=== PATIENT | female | born 1995 | race Caucasian/White ===

== ENCOUNTER 2018-10-07 15:20 | Emergency (ER) | payer MEDICAID ==
--- NOTE | 2018-10-07 15:43 | ERPHSYRPT ---
- History of Present Illness Time Seen by Provider: 10/07/18 15:40 Source: patient Exam Limitations: no limitations Patient Subjective Stated Complaint: states started having swelling and pain to left lower jaw two days ago. thinks she may have abscessed tooth. Triage Nursing Assessment: left jaw slightly swollen, tender to touch Physician History: states started having swelling and pain to left lower jaw two days ago. thinks she may have abscessed tooth. Timing/Duration: today Associated Symptoms: denies symptoms Allergies/Adverse Reactions: No Known Drug Allergies Allergy (Unverified 10/07/18 15:29) Home Medications: Metformin HCl [Glucophage] 1,000 mg PO DAILY 10/07/18 [History] Hx Tetanus, Diphtheria Vaccination/Date Given: Yes Hx Influenza Vaccination/Date Given: No Hx Pneumococcal Vaccination/Date Given: No - Review of Systems Constitutional: No Symptoms Eyes: No Symptoms Ears, Nose, & Throat: Loose Teeth Respiratory: No Symptoms Cardiac: No Symptoms Abdominal/Gastrointestinal: No Symptoms Genitourinary Symptoms: No Symptoms Musculoskeletal: No Symptoms - Past Medical History Pertinent Past Medical History: Yes Endocrine Medical History: Diabetes Type II Female Reproductive Disorders: Other Other Medical History: ovarian cyst - Past Surgical History Past Surgical History: Yes Other Surgical History: one ovary and one fallopian tube removed - Social History Smoking Status: Never smoker Exposure to second hand smoke: Yes Drug Use: none Patient Lives Alone: No - Female History Hx Last Menstrual Period: now Hx Now: No - Nursing Vital Signs Nursing Vital Signs: Initial Vital Signs Temperature 98.3 F 10/07/18 15:25 Pulse Rate 80 10/07/18 15:25 Respiratory Rate 16 10/07/18 15:25 Blood Pressure 112/81 10/07/18 15:25 O2 Sat by Pulse Oximetry 97 10/07/18 15:25 Pain Scale Pain Intensity 7 - Physical Exam General Appearance: no apparent distress Eye Exam: PERRL/EOMI Ears, Nose, Throat Exam: normal ENT inspection, other Neck Exam: normal inspection Respiratory Exam: normal breath sounds Cardiovascular Exam: regular rate/rhythm SpO2: 97 - Course Nursing assessment & vital signs reviewed: Yes - Progress Progress: unchanged Counseled pt/family regarding: diagnosis, need for follow-up (with Dentist) - Departure Departure Disposition: Home Clinical Impression: Tooth abscess Condition: Stable Critical Care Time: No Instructions: Tooth Abscess (DC) Additional Instructions: Discharge/Care Plan ASAEL,LYNDSEY was seen on 10/07/18 in the Emergency Room. The patient was counseled regarding Diagnosis,Lab results, Imaging studies, need for follow up and when to return to the Emergency Room. Prescriptions given: Discharge Note I have spoken with the patient and/or caregivers. I have explained the patient' s condition, diagnosis and treatment plan based on the information available to me at this time. I have answered the patient's and/or caregiver's questions and addressed any concerns. The patient and/or caregivers have as good understanding of the patient's diagnosis, condition and treatment plan as can be expected at this point. The vital signs have been stable. The patient's condition is stable and appropriate for discharge from the emergency department. The patient will pursue further outpatient evaluation with the primary care physician or other designated or consulting physician as outlined in the discharge instructions. The patient and/or caregivers are agreeable to this plan of care and follow-up instructions have been explained in detail. The patient and/or caregivers have received these instruction. The patient/and or caregivers are aware that any significant change in condition or worsening of symptoms should prompt an immediate return to this or the closest emergency department or call 911. Prescriptions: Amoxicillin 500 mg Cap [Amoxil 500 mg] 500 mg PO TID #30 capsule Naproxen 500 mg [Naprosyn 500 MG] 500 mg PO BIDAC #30 tablet
[2018-10-07] MEDS ORDERED: TORAdol 30 mg Injection ONE (15:45)
[2018-10-07] MEDS ORDERED: Rocephin 1000 MG INJ ONE (15:45)
[2018-10-07] MEDS ORDERED: XYLOCAINE 1% HCL 20 ML MDV ONE (15:45)
[2018-10-07] MEDS: TORAdol 30 mg Injection IM ONE (16:01)
[2018-10-07] MEDS: Rocephin 1000 MG INJ IM ONE (16:02)
[2018-10-07 16:25] VITALS: BP 117/69; PULSE 72; O2SAT 95
== END 2018-10-07 16:24 | disposition home or self-care (01) ==
LOC: ED 15:20
DX: K04.7 Periapical abscess without sinus (principal)
CPT/HCPCS: 96372; 99284; J0696; J1885

== ENCOUNTER 2018-11-24 17:08 | Emergency (ER) | payer MEDICAID, OTHER ==
[2018-11-24] MEDS ORDERED: ROCEPHIN 1 Gm-D5w 50 ml Bag** 1 G/50 ML IVPB IV STA (17:44)
[2018-11-24] MEDS ORDERED: Sodium Chloride 0.9% 1000 ML 1,000 ML IV SCH (17:45)
--- NOTE | 2018-11-24 17:47 | ERPHSYRPT ---
- History of Present Illness Time Seen by Provider: 11/24/18 17:34 Source: patient Exam Limitations: clinical condition Patient Subjective Stated Complaint: Pt states "I have this spot on my side, it started as a hole with red around it and it is getting bigger, I poked it and a bunch of green stuff came out." Triage Nursing Assessment: PT presented to the ED and placed in room 9. Pt has abscess noted to right lateral side mid axillary. red swollen 3 cm X 2 cm Physician History: PATIENT WITH A HISTORY OF TYPE 2 DIABETIC NONCOMPLIANT WITH INSULIN, COMPLAINS OF SQUEEZING DISCHARGE FROM SMALL LESION BELOW HER ARMPIT. DENIES FEVER OR CHILLS. TAKES METFORMIN FOR DIABETES. Timing/Duration: yesterday Quality: painful Severity: mild Location: other (CHEST WALL) Possible Causes: no cause identified Modifying Factors: Improves With: other (NONE) Allergies/Adverse Reactions: No Known Drug Allergies Allergy (Verified 11/24/18 17:27) Home Medications: Metformin HCl [Glucophage] 1,000 mg PO DAILY 10/07/18 [History] Hx Tetanus, Diphtheria Vaccination/Date Given: No Hx Influenza Vaccination/Date Given: No Hx Pneumococcal Vaccination/Date Given: No Immunizations Up to Date: Yes - Review of Systems Constitutional: No Symptoms Eyes: No Symptoms Respiratory: No Symptoms Cardiac: No Symptoms Skin: Skin Lesions (RIGHT CHEST WALL) Neurological: No Symptoms Hematologic/Lymphatic: No Symptoms - Past Medical History Pertinent Past Medical History: Yes Neurological History: No Pertinent History ENT History: No Pertinent History Cardiac History: No Pertinent History Respiratory History: No Pertinent History Endocrine Medical History: Diabetes Type II, Other Musculoskeletal History: No Pertinent History GI Medical History: No Pertinent History History: No Pertinent History Psycho-Social History: Depression Female Reproductive Disorders: Other Other Medical History: NON COMPLIANT ON INSULIN - Past Surgical History Past Surgical History: Yes Neuro Surgical History: No Pertinent History Cardiac: No Pertinent History Respiratory: No Pertinent History Gastrointestinal: No Pertinent History Genitourinary: No Pertinent History Musculoskeletal: No Pertinent History Female Surgical History: Other Other Surgical History: cyst on left ovary removed - Social History Smoking Status: Never smoker Exposure to second hand smoke: Yes Drug Use: none Patient Lives Alone: No - Female History Hx Last Menstrual Period: 10/27/2018 Hx Now: (unknown) - Nursing Vital Signs Nursing Vital Signs: Initial Vital Signs Temperature 98.5 F 11/24/18 17:22 Pulse Rate 100 H 11/24/18 17:22 Respiratory Rate 22 11/24/18 17:22 Blood Pressure 140/94 11/24/18 17:22 O2 Sat by Pulse Oximetry 97 11/24/18 17:22 Pain Scale Pain Intensity 0 - Physical Exam General Appearance: no apparent distress, alert Eye Exam: PERRL/EOMI, eyes nml inspection Ears, Nose, Throat Exam: normal ENT inspection, pharynx normal, moist mucous membranes Neck Exam: normal inspection, non-tender, supple, full range of motion Respiratory Exam: normal breath sounds, lungs clear, No respiratory distress Cardiovascular Exam: regular rate/rhythm, normal heart sounds Gastrointestinal/Abdomen Exam: soft, normal bowel sounds, mass, No tenderness Back Exam: normal inspection, normal range of motion, No CVA tenderness, No vertebral tenderness Extremity Exam: normal inspection, normal range of motion Neurologic Exam: alert, oriented x 3, cooperative, normal mood/affect, sensation nml, No motor deficits Skin Exam: normal color, warm, dry, other (THERE IS A NONFLUCTUANT SWELLING 1CM OVER RIGHT CHEST WALL INFERIOR TO AXILLA 5 INTERCOSTAL SPACE NO DRAINAGE NOTED, NO ERYTHEMA) SpO2: 97 Ordered Tests: Active Orders 24 hr Category Date Time Status BMP Stat Lab 11/24/18 18:09 Completed CBC W DIFF Stat Lab 11/24/18 18:09 Completed CULTURE,WOUND Stat Lab 11/24/18 17:35 Received Medication Summary Generic Name Dose Route Start Last Admin Trade Name Freq PRN Reason Stop Dose Admin Sodium Chloride 1,000 mls @ 500 mls/hr 11/24/18 17:45 11/24/18 18:59 Sodium Chloride 0.9% 1000 Ml IV 12/24/18 17:44 Infused .Q2H MICHELLE Infusion Discontinued Medications Generic Name Dose Route Start Last Admin Trade Name Freq PRN Reason Stop Dose Admin Ceftriaxone Sodium/Dextrose 1 g in 50 mls @ 100 mls/hr 11/24/18 17:44 18:52 Rocephin 1 Gm-D5w 50 Ml Bag IV 11/24/18 18:13 Infused STAT STA Infusion Ceftriaxone Sodium/Dextrose Confirm 11/24/18 17:48 Rocephin 1 Gm-D5w 50 Ml Bag Administered 11/24/18 17:49 Dose 1 g in 50 mls @ ud IV .STK-MED ONE Lab/Rad Data: Laboratory Result Diagrams 11/24/18 18:09 11/24/18 18:09 Laboratory Results 11/24/18 11/24/18 Range/Units 18:09 18:09 WBC 6.7 (4.0-10.5) K/mm3 RBC 4.69 (4.1-5.4) M/mm3 Hgb 13.7 (12.0-16.0) gm/dl Hct 39.2 (35-47) % MCV 83.6 (78-100) fl MCH 29.2 (26-32) pg MCHC 34.9 (32-36) g/dl RDW 13.4 (11.5-14.0) % Plt Count 187 (150-450) K/mm3 MPV 10.0 H (6-9.5) fl Gran % 47.2 (36.0-66.0) % Eos # (Auto) 0.05 (0-0.5) Absolute Lymphs (auto) 3.09 (1.0-4.6) Absolute Monos (auto) 0.38 (0.0-1.3) Lymphocytes % 46.3 H (24.0-44.0) % Monocytes % 5.7 (0.0-12.0) % Eosinophils % 0.7 (0.00-5.0) % Basophils % 0.1 (0.0-0.4) % Absolute Granulocytes 3.14 (1.4-6.9) Basophils # 0.01 (0-0.4) Sodium 136 L (137-145) mmol/L Potassium 4.3 (3.5-5.1) mmol/L Chloride 100 (98-107) mmol/L Carbon Dioxide 26 (22-30) mmol/L Anion Gap 14.2 (5-15) MEQ/L BUN 9 (7-17) mg/dL Creatinine 0.41 L (0.52-1.04) mg/dL Estimated GFR > 60.0 ML/MIN Glucose 317 H (74-106) mg/dL Calcium 9.7 (8.4-10.2) mg/dL - Progress Progress Note: 11/24/18 19:01 IV ROCEPHIN 1GM, ALL LAB TEST REVIEW AND ARE NORMAL EXCEPT GLUCOSE 317 Counseled pt/family regarding: lab results, diagnosis, need for follow-up - Departure Departure Disposition: Home Clinical Impression: FURUNCLE RIGHT CHEST WALL Condition: Stable Critical Care Time: No Referrals: CONRAD ISBELL MD [Primary Care Provider] - Additional Instructions: FOLLOWUP WITH A PRIMARY CARE PROVIDER FOR EVALUATION AND TREATMENT. ANTIBIOTIC BACTRIM DS TWICE DAILY FOR 10 DAYS. AVOID SQUEEZING OR COMPRESSING LESION. TYLENOL OR MOTRIN FOR PAIN. Prescriptions: Smz/Tmp Ds Tablet [Bactrim Ds Tablet] 1 tab PO BID #20 tablet
[2018-11-24] MEDS ORDERED: ROCEPHIN 1 Gm-D5w 50 ml Bag** 1 G/50 ML IVPB IV ONE (17:48)
[2018-11-24] MEDS ORDERED: Sodium Chloride 0.9% 1000 ML 1,000 ML ONE (17:48)
[2018-11-24 18:13] LABS: BASOPHIL % 0.1 % (0.0-0.4); Basophil (Absolute #) 0.01 (0-0.4); Eosinophil % 0.7 % (0.00-5.0); Eosinophil (Absolute #) 0.05 (0-0.5); Granulocyte Absolute (ANC) 3.14 (1.4-6.9); Granulocytes % 47.2 % (36.0-66.0); Hematocrit 39.2 % (35-47); Hemoglobin 13.7 gm/dl (12.0-16.0); Lymphocyte (Absolute #) 3.09 (1.0-4.6); Lymphocytes % 46.3 % (24.0-44.0); Mean Cell Volume 83.6 fl (78-100); Mean Corpuscular Hemoglobin 29.2 pg (26-32); Mean Corpuscular Hgb Concent. 34.9 g/dl (32-36); Monocyte (Absolute #) 0.38 (0.0-1.3); Monocytes % 5.7 % (0.0-12.0); Platelet Count 187 K/mm3 (150-450); Red Blood Count 4.69 M/mm3 (4.1-5.4); Red Cell Distribution Width 13.4 % (11.5-14.0); White Blood Count 6.7 K/mm3 (4.0-10.5)
[2018-11-24 18:23] LABS: ANION GAP 14.2 MEQ/L (5-15); BLOOD UREA NITROGEN 9 mg/dL (7-17); CHLORIDE 100 mmol/L (98-107); Calcium 9.7 mg/dL (8.4-10.2); Carbon Dioxide 26 mmol/L (22-30); Creatinine 1 0.41 mg/dL (0.52-1.04); Glucose 317 mg/dL (74-106); Potassium 4.3 mmol/L (3.5-5.1); SODIUM 136 mmol/L (137-145)
[2018-11-24 18:59] VITALS: BP 137/94; PULSE 101; O2SAT 97
== END 2018-11-24 19:09 | disposition home or self-care (01) ==
LOC: ED 17:08
DX: L02.223 Furuncle of chest wall (principal); E11.9 Type 2 diabetes mellitus without complications; Z79.4 Long term (current) use of insulin; Z91.14 Patient's other noncompliance with medication regimen
CPT/HCPCS: 36000; 36415; 80048; 85025; 87070; 87077; 87186; 96360; 96365; 99284; J0696

== ENCOUNTER 2018-12-06 13:52 | Emergency (ER) | payer OTHER ==
[2018-12-06] MEDS ORDERED: Zofran 4 MG/2 ML VIAL IV ONE (14:22)
--- NOTE | 2018-12-06 14:26 | ERPHSYRPT ---
- History of Present Illness Time Seen by Provider: 12/06/18 14:20 Patient Subjective Stated Complaint: Pt states "I had my wisdom teeth out on monday and I have had lower right abdominal pain and diarrhea since then. I also missed my period and I took a home test and it was negative but my last I had to have a blood test to tell. The pain reminds me of ovarian cysts." Triage Nursing Assessment: PT presented through the front alert and oriented X 3 , skin pwd. Pt ambulates with an upright steady gait, able to speak in clear full sentences. Pt in no apparent respiratory distress. Physician History: PATIENT WITH A HISTORY OF TYPE 2 DIABETES UNDER WENT EXTRACTION OF WISDOM TEETH 2 DAYS AGO, PLACED ON ANTIBIOTIC AUGMENTIN AND NORCO. NOW COMPLAINS OF NAUSEA EMESIS AND DIARRHEA X 2 DAYS ASSOCIATED WITH RIGHT LOWER ABDOMINAL PAIN. Timing/Duration: day(s) Activities at Onset: none Quality: sharpness Abdominal Pain Onset Location: RLQ Pain Radiation: no radiation Severity of Pain-Max: mild Severity of Pain-Current: mild Modifying Factors: Improves With: nothing Associated Symptoms: nausea, vomiting Previous symptoms: no prior history Allergies/Adverse Reactions: No Known Drug Allergies Allergy (Verified 11/24/18 17:27) Home Medications: Metformin HCl [Glucophage] 1,000 mg PO DAILY 10/07/18 [History] Amoxicillin 500 mg Cap [Amoxil 500 mg] 500 mg PO TID 12/06/18 [History] Hydrocodone Bit/Acetaminophen [Hydrocodon-Acetaminophen 5-325] 1 each PO QID PRN 12/06/18 [History] Hx Tetanus, Diphtheria Vaccination/Date Given: Yes Hx Influenza Vaccination/Date Given: No Hx Pneumococcal Vaccination/Date Given: No Immunizations Up to Date: Yes - Review of Systems Constitutional: No Fever, No Chills Eyes: No Symptoms Ears, Nose, & Throat: No Symptoms Respiratory: No Symptoms, No Cough, No Dyspnea Cardiac: No Symptoms, No Chest Pain, No Edema, No Syncope Abdominal/Gastrointestinal: Abdominal Pain, Nausea, Vomiting, Diarrhea Genitourinary Symptoms: No Dysuria Musculoskeletal: No Back Pain, No Neck Pain Skin: No Rash Neurological: No Symptoms, No Dizziness, No Focal Weakness, No Sensory Changes Psychological: No Symptoms Endocrine: No Symptoms All Other Systems: Reviewed and Negative - Past Medical History Pertinent Past Medical History: Yes Neurological History: No Pertinent History ENT History: No Pertinent History Cardiac History: No Pertinent History Respiratory History: No Pertinent History Endocrine Medical History: Diabetes Type II, Other Musculoskeletal History: No Pertinent History GI Medical History: No Pertinent History History: No Pertinent History Psycho-Social History: Depression Female Reproductive Disorders: Other Other Medical History: NON COMPLIANT ON INSULIN - Past Surgical History Past Surgical History: Yes Neuro Surgical History: No Pertinent History Cardiac: No Pertinent History Respiratory: No Pertinent History Gastrointestinal: No Pertinent History Genitourinary: No Pertinent History Musculoskeletal: No Pertinent History Female Surgical History: Other Other Surgical History: cyst on left ovary removed. wisdom teeth X 4 - Social History Smoking Status: Never smoker Exposure to second hand smoke: Yes Drug Use: none Patient Lives Alone: No - Female History Hx Last Menstrual Period: 11/01/2018 Hx Now: (unknown) - Nursing Vital Signs Nursing Vital Signs: Initial Vital Signs Temperature 98.6 F 12/06/18 13:59 Pulse Rate 100 H 12/06/18 13:59 Respiratory Rate 18 12/06/18 13:59 Blood Pressure 138/85 12/06/18 13:59 O2 Sat by Pulse Oximetry 96 12/06/18 13:59 Pain Scale Pain Intensity 4 - Physical Exam General Appearance: no apparent distress Eye Exam: PERRL/EOMI, eyes nml inspection Ears, Nose, Throat Exam: normal ENT inspection, pharynx normal, moist mucous membranes Neck Exam: normal inspection, non-tender, supple, full range of motion Respiratory Exam: normal breath sounds, lungs clear, No respiratory distress Cardiovascular Exam: regular rate/rhythm, normal heart sounds Gastrointestinal/Abdomen Exam: soft, normal bowel sounds, tenderness (MINIMAL RIGHT LOWER QUAD TENDERNESS, NO GUARDING), No mass Back Exam: normal inspection, normal range of motion, No CVA tenderness, No vertebral tenderness Extremity Exam: normal inspection, normal range of motion, pelvis stable Neurologic Exam: alert, oriented x 3, cooperative, normal mood/affect, nml cerebellar function, sensation nml, No motor deficits Skin Exam: normal color, warm, dry SpO2 Interpretation: normal SpO2: 96 - CT Exams Abdomen/Pelvis CT Interpretation: Discussed w/radiologist (NORMAL APPENDIX,,NEW MILD DIFFUSE STASIS) Ordered Tests: Active Orders 24 hr Category Date Time Status IV Insertion STAT Care 12/06/18 14:22 Active ABDOMEN AND PELVIS W CONTRAST [CT] Stat Exams 12/06/18 15:15 Completed BMP Stat Lab 12/06/18 14:35 Completed CBC W DIFF Stat Lab 12/06/18 14:35 Completed HCG,QUALITATIVE URINE Stat Lab 12/06/18 14:31 Completed UA W/RFX UR CULTURE Stat Lab 12/06/18 14:35 Completed Urine Triage Profile Stat Lab 12/06/18 14:35 Completed Medication Summary Discontinued Medications Generic Name Dose Route Start Last Admin Trade Name Raz PRN Reason Stop Dose Admin Ondansetron HCl 4 mg 12/06/18 14:22 12/06/18 14:44 Zofran 4 Mg/2 Ml Vial IV 12/06/18 14:23 4 mg STAT ONE Administration Ondansetron HCl Confirm 12/06/18 14:43 Zofran 4 Mg/2 Ml Vial Administered 12/06/18 14:44 Dose 4 mg .ROUTE .STK-MED ONE Lab/Rad Data: Laboratory Result Diagrams 12/06/18 14:35 12/06/18 14:35 Laboratory Results 12/06/18 12/06/18 12/06/18 Range/Units 14:35 14:35 14:35 WBC (4.0-10.5) K/mm3 RBC (4.1-5.4) M/mm3 Hgb (12.0-16.0) gm/dl Hct (35-47) % MCV (78-100) fl MCH (26-32) pg MCHC (32-36) g/dl RDW (11.5-14.0) % Plt Count (150-450) K/mm3 MPV (6-9.5) fl Gran % (36.0-66.0) % Eos # (Auto) (0-0.5) Absolute Lymphs (auto) (1.0-4.6) Absolute Monos (auto) (0.0-1.3) Lymphocytes % (24.0-44.0) % Monocytes % (0.0-12.0) % Eosinophils % (0.00-5.0) % Basophils % (0.0-0.4) % Absolute Granulocytes (1.4-6.9) Basophils # (0-0.4) Sodium 136 L (137-145) mmol/L Potassium 4.5 (3.5-5.1) mmol/L Chloride 101 (98-107) mmol/L Carbon Dioxide 24 (22-30) mmol/L Anion Gap 15.3 H (5-15) MEQ/L BUN 7 (7-17) mg/dL Creatinine 0.39 L (0.52-1.04) mg/dL Estimated GFR > 60.0 ML/MIN Glucose 383 H (74-106) mg/dL Calcium 9.5 (8.4-10.2) mg/dL Urine Color YELLOW (YELLOW) Urine Appearance CLEAR (CLEAR) Urine pH 5.0 (5-6) Ur Specific Prosper 1.035 (1.005-1.025) Urine Protein NEGATIVE (Negative) Urine Ketones TRACE (NEGATIVE) Urine Blood NEGATIVE (0-5) Roberto/ul Urine Nitrite NEGATIVE (NEGATIVE) Urine Bilirubin NEGATIVE (NEGATIVE) Urine Urobilinogen NEGATIVE (0-1) mg/dL Ur Leukocyte Esterase NEGATIVE (NEGATIVE) Urine WBC (Auto) NONE (0-5) /HPF Urine RBC (Auto) NONE (0-2) /HPF U Epithel Cells (Auto) NONE (FEW) /HPF Urine Bacteria (Auto) NONE (NEGATIVE) /HPF Urine Mucus (Auto) SLIGHT (NEGATIVE) /HPF Urine Culture Reflexed NO (NO) Urine Glucose >=500 (NEGATIVE) mg/dL Urine HCG, Qual (Negative) Urine Opiates Level POSITIVE (NEGATIVE) Ur Methadone NEGATIVE (NEGATIVE) Urine Barbiturates NEGATIVE (NEGATIVE) Ur Phencyclidine (PCP) NEGATIVE (NEGATIVE) Urine Amphetamine NEGATIVE (NEGATIVE) U Benzodiazepine Level NEGATIVE (NEGATIVE) Urine Cocaine NEGATIVE (NEGATIVE) Urine Marijuana (THC) NEGATIVE (NEGATIVE) 12/06/18 12/06/18 Range/Units 14:35 14:31 WBC 6.7 (4.0-10.5) K/mm3 RBC 4.37 (4.1-5.4) M/mm3 Hgb 13.0 (12.0-16.0) gm/dl Hct 37.5 (35-47) % MCV 85.8 (78-100) fl MCH 29.7 (26-32) pg MCHC 34.7 (32-36) g/dl RDW 13.3 (11.5-14.0) % Plt Count 222 (150-450) K/mm3 MPV 10.5 H (6-9.5) fl Gran % 49.2 (36.0-66.0) % Eos # (Auto) 0.06 (0-0.5) Absolute Lymphs (auto) 2.91 (1.0-4.6) Absolute Monos (auto) 0.40 (0.0-1.3) Lymphocytes % 43.6 (24.0-44.0) % Monocytes % 6.0 (0.0-12.0) % Eosinophils % 0.9 (0.00-5.0) % Basophils % 0.3 (0.0-0.4) % Absolute Granulocytes 3.29 (1.4-6.9) Basophils # 0.02 (0-0.4) Sodium (137-145) mmol/L Potassium (3.5-5.1) mmol/L Chloride (98-107) mmol/L Carbon Dioxide (22-30) mmol/L Anion Gap (5-15) MEQ/L BUN (7-17) mg/dL Creatinine (0.52-1.04) mg/dL Estimated GFR ML/MIN Glucose (74-106) mg/dL Calcium (8.4-10.2) mg/dL Urine Color (YELLOW) Urine Appearance (CLEAR) Urine pH (5-6) Ur Specific Prosper (1.005-1.025) Urine Protein (Negative) Urine Ketones (NEGATIVE) Urine Blood (0-5) Roberto/ul Urine Nitrite (NEGATIVE) Urine Bilirubin (NEGATIVE) Urine Urobilinogen (0-1) mg/dL Ur Leukocyte Esterase (NEGATIVE) Urine WBC (Auto) (0-5) /HPF Urine RBC (Auto) (0-2) /HPF U Epithel Cells (Auto) (FEW) /HPF Urine Bacteria (Auto) (NEGATIVE) /HPF Urine Mucus (Auto) (NEGATIVE) /HPF Urine Culture Reflexed (NO) Urine Glucose (NEGATIVE) mg/dL Urine HCG, Qual NEGATIVE (Negative) Urine Opiates Level (NEGATIVE) Ur Methadone (NEGATIVE) Urine Barbiturates (NEGATIVE) Ur Phencyclidine (PCP) (NEGATIVE) Urine Amphetamine (NEGATIVE) U Benzodiazepine Level (NEGATIVE) Urine Cocaine (NEGATIVE) Urine Marijuana (THC) (NEGATIVE) - Departure Departure Disposition: Home Clinical Impression: ACUTE GASTROENTERITIS Condition: Stable Critical Care Time: No Referrals: CONRAD ISBELL MD [Primary Care Provider] - Additional Instructions: ZOFRAN 4MG EVERY 6 HOURS FOR NAUSEA NEEDED. TORADOL 10MG EVERY 6 HOURS FOR PAIN. TAKE OVER THE COUNTER IMODIUM FOR DIARRHEA. HOLD METFORMIN FOR [address] SCAN. CONSULT YOUR PRIMARY CARE PROVIDER FOR FOLLOWUP AND DIABETIC TEACHING CLASSES. Prescriptions: Ketorolac Tromethamine [Toradol] 10 mg PO Q6H PRN PRN #20 tablet PRN Reason: Pain Ondansetron ODT 4 MG [Zofran Odt 4 mg] 4 mg PO Q6H PRN PRN #10 tab.rapdis PRN Reason: Nausea
[2018-12-06 14:43] LABS: BASOPHIL % 0.3 % (0.0-0.4); Basophil (Absolute #) 0.02 (0-0.4); Eosinophil % 0.9 % (0.00-5.0); Eosinophil (Absolute #) 0.06 (0-0.5); Granulocyte Absolute (ANC) 3.29 (1.4-6.9); Granulocytes % 49.2 % (36.0-66.0); Hematocrit 37.5 % (35-47); Lymphocyte (Absolute #) 2.91 (1.0-4.6); Lymphocytes % 43.6 % (24.0-44.0); Mean Cell Volume 85.8 fl (78-100); Mean Corpuscular Hemoglobin 29.7 pg (26-32); Mean Corpuscular Hgb Concent. 34.7 g/dl (32-36); Mean Platelet Volume 10.5 fl (6-9.5); Platelet Count 222 K/mm3 (150-450); Red Blood Count 4.37 M/mm3 (4.1-5.4); Red Cell Distribution Width 13.3 % (11.5-14.0); White Blood Count 6.7 K/mm3 (4.0-10.5)
[2018-12-06] MEDS ORDERED: Zofran 4 MG/2 ML VIAL ONE (14:43)
[2018-12-06 14:52] LABS: Appearance CLEAR (CLEAR); Bilirubin NEGATIVE (NEGATIVE); Blood NEGATIVE Ery/ul (0-5); Glucose >=500 mg/dL (NEGATIVE); Ketones TRACE (NEGATIVE); Leukocyte Esterase NEGATIVE (NEGATIVE); Mucus SLIGHT /HPF (NEGATIVE); Nitrite NEGATIVE (NEGATIVE); Protein,Urine Dip NEGATIVE (Negative); Specific Gravity 1.035 (1.005-1.025); Urobilinogen NEGATIVE mg/dL (0-1)
[2018-12-06 14:58] LABS: ANION GAP 15.3 MEQ/L (5-15); BLOOD UREA NITROGEN 7 mg/dL (7-17); CHLORIDE 101 mmol/L (98-107); Calcium 9.5 mg/dL (8.4-10.2); Carbon Dioxide 24 mmol/L (22-30); Creatinine 1 0.39 mg/dL (0.52-1.04); Glucose 383 mg/dL (74-106); Potassium 4.5 mmol/L (3.5-5.1); SODIUM 136 mmol/L (137-145)
[2018-12-06 15:01] LABS: Amphetamine,Urine NEGATIVE (NEGATIVE); Barbiturate,Urine NEGATIVE (NEGATIVE); Benzodiazepine,Urine NEGATIVE (NEGATIVE); Cocaine,Urine NEGATIVE (NEGATIVE); Methadone,Urine NEGATIVE (NEGATIVE); Opiate,Urine POSITIVE (NEGATIVE); PCP,Urine NEGATIVE (NEGATIVE); THC,Urine NEGATIVE (NEGATIVE)
[2018-12-06 15:42] VITALS: PULSE 80
--- NOTE | 2018-12-06 16:19 | XRAY ---
Indication: Right lower quadrant pain. Nausea, vomiting, and diarrhea. Multiple contiguous axial images obtained through the abdomen and pelvis using 80 cc Isovue-370 contrast only. Comparison: October 22, 2013. Lung bases are clear. Heart is not enlarged. Noncontrasted stomach and bowel loops appear nonobstructed. Normal air-filled appendix. There is now mild scattered colonic fecal debris throughout. Stable left adnexa surgical clips. No free fluid/air. Gallbladder contracted without gallstones. Spleen is now enlarged measuring 14.7 cm in greatest axial dimension. Remaining liver, gallbladder, pancreas, spleen, adrenal glands, kidneys, ureters, bladder, uterus, and aorta appear unremarkable. No pathologic retroperitoneal lymphadenopathy. Osseous structures intact. Impression: 1. New mild diffuse fecal stasis without obstruction and splenomegaly. 2. Remaining CT abdomen/pelvis with contrast exam is negative. CTDI 28.09
[2018-12-06 17:14] VITALS: BP 116/72; O2SAT 98
== END 2018-12-06 17:19 | disposition home or self-care (01) ==
LOC: ED 13:52
DX: K52.9 Noninfective gastroenteritis and colitis, unspecified (principal)
CPT/HCPCS: 36000; 36415; 74177; 80048; 80307; 81001; 84703; 85025; 96374; 99284; J2405

== ENCOUNTER 2019-03-16 01:03 | Emergency (ER) | payer MEDICAID, OTHER ==
--- NOTE | 2019-03-16 01:27 | ERPHSYRPT ---
- History of Present Illness Time Seen by Provider: 03/16/19 01:30 Source: patient Exam Limitations: no limitations Physician History: Patient has had vaginal itching and discharge for one week, with no relief with [id number] antifungal Monistat. The patient has had a headache for 17 hours, and has not taken her insulin for 2 weeks. Patient states she lost her insurance 2 weeks ago and is in the process of reapplying for it. The patient has not been evaluated or treated prior to coming to the emergency department this evening. Timing/Duration: hour(s) (17 for the headache), week(s) (1 week for the vaginal itching) Quality: throbbing Head Pain Location: frontal Severity of Pain-Max: severe Severity of Pain-Current: severe Recent Head Trauma: no recent headache/trauma, occasional headaches Associated Symptoms: No confusion, No dizziness, No fatigue, No facial pain, No fever/chills, No flushing, No light-headedness, No loss of consciousness, No nausea/vomiting, No nasal congestion, No nasal drainage, No neck pain, No numbness in legs/feet, No rash, No sweating, No scotoma, No seizures, No sinus infection, No sensitive to light, No speech problems, No stiff neck, No trouble walking, No vision changes, No visual disturbance, No weakness Previous symptoms: same symptoms as today Allergies/Adverse Reactions: No Known Drug Allergies Allergy (Verified 11/24/18 17:27) Home Medications: Metformin HCl [Glucophage] 1,000 mg PO DAILY 10/07/18 [History] Hx Tetanus, Diphtheria Vaccination/Date Given: Yes Hx Influenza Vaccination/Date Given: No Hx Pneumococcal Vaccination/Date Given: No - Review of Systems Constitutional: No Fever, No Chills, No Fatigue Eyes: No Eye Pain, No Vision Changes Ears, Nose, & Throat: No Mouth Pain, No Throat Swelling, No Painful Swallowing Respiratory: No Cough, No Dyspnea Cardiac: No Chest Pain, No Palpitations, No Syncope Abdominal/Gastrointestinal: No Abdominal Pain, No Nausea, No Vomiting Genitourinary Symptoms: Vaginal Discharge, Vaginal Itching, No Dysuria, No Frequency, No Hematuria, No Urgency, No Flank Pain Musculoskeletal: No Back Pain, No Neck Pain, No Joint Swelling, No Myalgias Skin: No Pruritis, No Rash Neurological: Headache, No Dizziness, No Focal Weakness, No Parasthesia, No Speech Changes Psychological: No Anxiety, No Emotional Lability Endocrine: Polydipsia, No Excessive Sweating Hematologic/Lymphatic: No Easy Bleeding, No Easy Bruising All Other Systems: Reviewed and Negative - Past Medical History Pertinent Past Medical History: Yes Neurological History: No Pertinent History ENT History: No Pertinent History Cardiac History: No Pertinent History Respiratory History: No Pertinent History Endocrine Medical History: Diabetes Type II, Other Musculoskeletal History: No Pertinent History GI Medical History: No Pertinent History History: No Pertinent History Psycho-Social History: Depression Female Reproductive Disorders: Other Other Medical History: NON COMPLIANT ON INSULIN - Past Surgical History Past Surgical History: Yes Neuro Surgical History: No Pertinent History Cardiac: No Pertinent History Respiratory: No Pertinent History Gastrointestinal: No Pertinent History Genitourinary: No Pertinent History Musculoskeletal: No Pertinent History Female Surgical History: Other Other Surgical History: cyst on left ovary removed. wisdom teeth X 4 - Social History Smoking Status: Never smoker Exposure to second hand smoke: Yes Drug Use: none Patient Lives Alone: No - Nursing Vital Signs Nursing Vital Signs: Initial Vital Signs Temperature 98.7 F 03/16/19 01:14 Pulse Rate 120 H 03/16/19 01:14 Respiratory Rate 18 03/16/19 01:14 Blood Pressure 126/93 03/16/19 01:14 O2 Sat by Pulse Oximetry 97 03/16/19 01:14 Pain Scale Pain Intensity 3 - Physical Exam General Appearance: no apparent distress, alert Eye Exam: PERRL/EOMI, eyes nml inspection, No scleral icterus Ears, Nose, Throat Exam: normal ENT inspection, TMs normal, pharynx normal, No TM abnormal (R), No TM abnormal (L), No pharyngeal erythema, No tonsillar exudate Neck Exam: normal inspection, non-tender, supple, full range of motion, No meningismus, No Brudzinski, No limited range of motion, No lymphadenopathy, No midline tenderness Respiratory Exam: normal breath sounds, lungs clear, respiratory distress, airway intact, accessory muscle use, No chest tenderness, No diminished breath sounds, No prolonged expirations, No crackles/rales, No rhonchi, No wheezing, No pleural rub Cardiovascular Exam: regular rate/rhythm, normal heart sounds, normal peripheral pulses, capillary refill <2 sec Gastrointestinal/Abdominal Exam: soft, normal bowel sounds, No tenderness, No distention, No ecchymosis Back Exam: normal inspection, normal range of motion, No CVA tenderness, No vertebral tenderness, No rash Extremity Exam: normal inspection, normal range of motion, pelvis stable Mental Status Exam: alert, oriented x 3, cooperative, 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 Exam: normal hearing, normal speech, PERRL, No facial asymmetry, No facial weakness, No gaze palsy Coordination/Gait Exam: normal cerebellar function Motor/Sensory Exam: no motor deficit, no sensory deficit, No weak motor strength RUE, No weak motor strength LUE, No weak motor strength RLE, No weak motor strength LLE DTR Exam: ankle (R): 2+, ankle (L): 2+ Skin Exam: normal color, warm, dry, No rash, No petechiae, No cyanosis SpO2 Interpretation: normal O2 Delivery: Room Air Comments: Geintourinary Examination: Chaperoned by Damaris Enriquez RN Vulva: negative lesions, ulcers, painless chancres Vagina: Negative discharge, negative bleeding, negative foreign bodies Cervix: Negative cervical motion tenderness, negative cervical discharge Adnexa: Negative masses bilaterally, negative tenderness bilaterally Uterus: Negative tenderness, negative enlarged Bladder: Nontender and nonenlarged - Course Nursing assessment & vital signs reviewed: Yes EKG Interpreted by Me: RATE (110), Sinus Tach, NORMAL AXIS, NORMAL INTERVALS, NORMAL QRS, NORMAL ST-T, Other (negative previous EKG for comparison) Ordered Tests: Active Orders 24 hr Category Date Time Status Accucheck STAT Care 03/16/19 01:21 Active Build Manager STAT Care 03/16/19 01:22 Active Build Manager STAT Care 03/16/19 01:24 Active EKG-ER Only STAT Care 03/16/19 01:25 Active IV Insertion STAT Care 03/16/19 01:24 Active IV Insertion STAT Care 03/16/19 01:25 Active Pelvic Exam Assist STAT Care 03/16/19 01:25 Active BMP Stat Lab 03/16/19 03:39 Completed BMP Stat Lab 03/16/19 06:08 Completed CBC W DIFF Stat Lab 03/16/19 01:45 Completed CMP Stat Lab 03/16/19 01:45 Completed CULTURE,URINE Stat Lab 03/16/19 01:45 Received HCG,QUALITATIVE URINE Stat Lab 03/16/19 01:45 Completed Lactic Acid Stat Lab 03/16/19 04:00 Completed Lactic Acid Stat Lab 03/16/19 06:02 Ordered Lactic Acid Stat Lab 03/16/19 06:17 Completed Lactic Acid Urgent Lab 03/16/19 01:46 Completed MAGNESIUM Stat Lab 03/16/19 01:45 Completed UA W/RFX UR CULTURE Stat Lab 03/16/19 01:45 Completed VENOUS BLOOD GAS Urgent Lab 03/16/19 01:46 Completed Wet Prep Stat Lab 03/16/19 02:21 Completed Medication Summary Generic Name Dose Route Start Last Admin Trade Name Freq PRN Reason Stop Dose Admin Insulin Human Regular 100 101 mls @ 8.08 mls/hr 03/16/19 01:45 03/16/19 02:46 units/ Sodium Chloride IV 04/15/19 01:44 8 units/hr .[id number] MICHELLE 8.08 mls/hr Administration 8 UNITS/HR Dextrose/Sodium Chloride 1,000 mls @ 200 mls/hr 03/16/19 05:45 03/16/19 05:57 Dextrose 5% -0.45 Nacl 1000 Ml IV 04/15/19 05:44 200 mls/hr .Q5H MICHELLE Administration Discontinued Medications Generic Name Dose Route Start Last Admin Trade Name Freq PRN Reason Stop Dose Admin Acetaminophen Confirm 03/16/19 05:01 Tylenol Extra Strength 500 Mg Administered 03/16/19 05:02 Dose 1,000 mg .ROUTE .STK-MED ONE Acetaminophen 1,000 mg 03/16/19 04:59 03/16/19 05:58 Tylenol Extra Strength 500 Mg PO 03/16/19 05:00 1,000 mg STAT STA Administration Diphenhydramine HCl 50 mg 03/16/19 01:24 03/16/19 02:05 Benadryl 50 Mg/Ml IV 03/16/19 01:25 50 mg STAT ONE Administration Diphenhydramine HCl Confirm 03/16/19 02:00 Benadryl 50 Mg/Ml Administered 03/16/19 02:01 Dose 50 mg .ROUTE .STK-MED ONE Hydromorphone HCl 1 mg 03/16/19 01:24 03/16/19 02:06 Hydromorphone 1 Mg/Ml Ampule IV 03/16/19 01:25 1 mg STAT ONE Administration Hydromorphone HCl Confirm 03/16/19 02:04 Hydromorphone 1 Mg/Ml Ampule Administered 03/16/19 02:05 Dose 1 mg .ROUTE .STK-MED ONE Sodium Chloride 1,000 mls @ 999 mls/hr 03/16/19 01:21 03/16/19 02:03 Sodium Chloride 0.9% 1000 Ml IV 03/16/19 02:21 999 mls/hr .Q1H1M STA Administration Sodium Chloride 1,000 mls @ 999 mls/hr 03/16/19 01:24 03/16/19 04:24 Sodium Chloride 0.9% 1000 Ml IV 03/16/19 02:24 999 mls/hr .Q1H1M STA Administration Sodium Chloride 1,000 mls @ 999 mls/hr 03/16/19 01:31 03/16/19 03:19 Sodium Chloride 0.9% 1000 Ml IV 03/16/19 02:31 999 mls/hr .Q1H1M STA Administration Sodium Chloride Confirm 03/16/19 01:48 Sodium Chloride 0.9% 1000 Ml Administered 03/16/19 01:49 Dose 1,000 mls @ ud .ROUTE .STK-MED ONE Sodium Chloride Confirm 03/16/19 02:19 Sodium Chloride 0.9% 100 Ml Ivpb Administered 03/16/19 02:20 Dose 100 mls @ ud IV .STK-MED ONE Sodium Chloride Confirm 03/16/19 03:18 Sodium Chloride 0.9% 1000 Ml Administered 03/16/19 03:19 Dose 1,000 mls @ ud .ROUTE .STK-MED ONE Sodium Chloride Confirm 03/16/19 04:08 Sodium Chloride 0.9% 1000 Ml Administered 03/16/19 04:09 Dose 1,000 mls @ ud .ROUTE .STK-MED ONE Dextrose/Sodium Chloride Confirm 03/16/19 05:44 Dextrose 5% -0.45 Nacl 1000 Ml Administered 03/16/19 05:45 Dose 1,000 mls @ ud IV .STK-MED ONE Insulin Human Regular 8 unit 03/16/19 01:21 03/16/19 02:04 Novolin R IV 03/16/19 01:22 8 unit STAT ONE Administration Insulin Human Regular Confirm 03/16/19 01:47 Novolin R Administered 03/16/19 01:48 Dose 8 unit .ROUTE .STK-MED ONE Insulin Human Regular Confirm 03/16/19 02:20 Novolin R Administered 03/16/19 02:21 Dose 100 unit .ROUTE .STK-MED ONE Ketorolac Tromethamine 30 mg 03/16/19 01:24 03/16/19 02:06 Toradol 30 Mg Injection IV 03/16/19 01:25 30 mg STAT ONE Administration Ketorolac Tromethamine Confirm 03/16/19 02:00 Toradol 30 Mg Injection Administered 03/16/19 02:01 Dose 30 mg .ROUTE .STK-MED ONE Metronidazole 500 mg 03/16/19 02:40 03/16/19 03:30 Flagyl 500 Mg PO 03/16/19 02:41 500 mg TID ONE Administration Metronidazole Confirm 03/16/19 03:29 Flagyl 500 Mg Administered 03/16/19 03:30 Dose 500 mg .ROUTE .STK-MED ONE Potassium Chloride 40 meq 03/16/19 04:02 03/16/19 06:00 Klor Con 10 Meq PO 03/16/19 04:03 40 meq STAT ONE Administration Potassium Chloride Confirm 03/16/19 05:58 Klor Con 10 Meq Administered 03/16/19 05:59 Dose 40 meq PO .STK-MED ONE Lab/Rad Data: Laboratory Result Diagrams 03/16/19 01:45 03/16/19 06:08 Laboratory Results 03/16/19 03/16/19 03/16/19 Range/Units 06:17 06:08 04:00 WBC (4.0-10.5) K/mm3 RBC (4.1-5.4) M/mm3 Hgb (12.0-16.0) gm/dl Hct (35-47) % MCV (78-100) fl MCH (26-32) pg MCHC (32-36) g/dl RDW (11.5-14.0) % Plt Count (150-450) K/mm3 MPV (6-9.5) fl Gran % (36.0-66.0) % Eos # (Auto) (0-0.5) Absolute Lymphs (auto) (1.0-4.6) Absolute Monos (auto) (0.0-1.3) Lymphocytes % (24.0-44.0) % Monocytes % (0.0-12.0) % Eosinophils % (0.00-5.0) % Basophils % (0.0-0.4) % Absolute Granulocytes (1.4-6.9) Basophils # (0-0.4) pO2/FiO2 Ratio % VBG pH (7.32-7.42) VBG pCO2 at Pat Temp (42-55) mm/Hg VBG pO2 at Pat Temp (25-40) mm/Hg VBG HCO3 (22-28) meq/L VBG O2 Sat (Isreal) (95-100) VBG Base Excess (-2.0-2.0) VBG Hemoglobin VBG Carboxyhemoglobin (0.0-6.9) % T HGB POC Potassium (3.5-5.1) Sodium 140 (137-145) mmol/L Potassium 4.0 (3.5-5.1) mmol/L Chloride 108 H (98-107) mmol/L Carbon Dioxide 22 (22-30) mmol/L Anion Gap 13.8 (5-15) MEQ/L BUN 16 (7-17) mg/dL Creatinine 0.38 L (0.52-1.04) mg/dL Estimated GFR > 60.0 ML/MIN Glucose 203 H (74-106) mg/dL Lactic Acid 1.6 3.6 H (0.4-2.0) Calcium 8.3 L (8.4-10.2) mg/dL Magnesium (1.6-2.3) mg/dL Total Bilirubin (0.2-1.3) mg/dL AST (14-36) U/L ALT (0-35) U/L Alkaline Phosphatase (38-126) U/L Serum Total Protein (6.3-8.2) g/dL Albumin (3.5-5.0) g/dL Urine Color (YELLOW) Urine Appearance (CLEAR) Urine pH (5-6) Ur Specific [place] (1.005-1.025) Urine Protein (Negative) Urine Ketones (NEGATIVE) Urine Blood (0-5) Roberto/ul Urine Nitrite (NEGATIVE) Urine Bilirubin (NEGATIVE) Urine Urobilinogen (0-1) mg/dL Ur Leukocyte Esterase (NEGATIVE) Urine WBC (Auto) (0-5) /HPF Urine RBC (Auto) (0-2) /HPF U Epithel Cells (Auto) (FEW) /HPF Urine Bacteria (Auto) (NEGATIVE) /HPF Urine Mucus (Auto) (NEGATIVE) /HPF Urine Culture Reflexed (NO) Urine Glucose (NEGATIVE) mg/dL Urine HCG, Qual (Negative) WBC (Wet Prep) RBC (Wet Prep) Epi Cells (Wet Prep) Bacteria (Wet Prep) Clue Cells (Wet Prep) Trichomonas (Wet Prep) Budding Yeast (Wet Prp) Chlamydia DNA (PCR) N.gonorrhoeae DNA Probe Group A Strep Antibody (NEGATIVE) 03/16/19 03/16/19 03/16/19 Range/Units 03:39 02:21 02:21 WBC (4.0-10.5) K/mm3 RBC (4.1-5.4) M/mm3 Hgb (12.0-16.0) gm/dl Hct (35-47) % MCV (78-100) fl MCH (26-32) pg MCHC (32-36) g/dl RDW (11.5-14.0) % Plt Count (150-450) K/mm3 MPV (6-9.5) fl Gran % (36.0-66.0) % Eos # (Auto) (0-0.5) Absolute Lymphs (auto) (1.0-4.6) Absolute Monos (auto) (0.0-1.3) Lymphocytes % (24.0-44.0) % Monocytes % (0.0-12.0) % Eosinophils % (0.00-5.0) % Basophils % (0.0-0.4) % Absolute Granulocytes (1.4-6.9) Basophils # (0-0.4) pO2/FiO2 Ratio % VBG pH (7.32-7.42) VBG pCO2 at Pat Temp (42-55) mm/Hg VBG pO2 at Pat Temp (25-40) mm/Hg VBG HCO3 (22-28) meq/L VBG O2 Sat (Isreal) (95-100) VBG Base Excess (-2.0-2.0) VBG Hemoglobin VBG Carboxyhemoglobin (0.0-6.9) % T HGB POC Potassium (3.5-5.1) Sodium 143 (137-145) mmol/L Potassium 3.4 L D (3.5-5.1) mmol/L Chloride 107 (98-107) mmol/L Carbon Dioxide 21 L (22-30) mmol/L Anion Gap 18.7 H (5-15) MEQ/L BUN 16 (7-17) mg/dL Creatinine 0.40 L (0.52-1.04) mg/dL Estimated GFR > 60.0 ML/MIN Glucose 170 H (74-106) mg/dL Lactic Acid (0.4-2.0) Calcium 9.0 (8.4-10.2) mg/dL Magnesium (1.6-2.3) mg/dL Total Bilirubin (0.2-1.3) mg/dL AST (14-36) U/L ALT (0-35) U/L Alkaline Phosphatase (38-126) U/L Serum Total Protein (6.3-8.2) g/dL Albumin (3.5-5.0) g/dL Urine Color (YELLOW) Urine Appearance (CLEAR) Urine pH (5-6) Ur Specific [place] (1.005-1.025) Urine Protein (Negative) Urine Ketones (NEGATIVE) Urine Blood (0-5) Roberto/ul Urine Nitrite (NEGATIVE) Urine Bilirubin (NEGATIVE) Urine Urobilinogen (0-1) mg/dL Ur Leukocyte Esterase (NEGATIVE) Urine WBC (Auto) (0-5) /HPF Urine RBC (Auto) (0-2) /HPF U Epithel Cells (Auto) (FEW) /HPF Urine Bacteria (Auto) (NEGATIVE) /HPF Urine Mucus (Auto) (NEGATIVE) /HPF Urine Culture Reflexed (NO) Urine Glucose (NEGATIVE) mg/dL Urine HCG, Qual (Negative) WBC (Wet Prep) Few RBC (Wet Prep) Few Epi Cells (Wet Prep) Moderate Bacteria (Wet Prep) Few Clue Cells (Wet Prep) Moderate Trichomonas (Wet Prep) None Seen Budding Yeast (Wet Prp) None Seen Chlamydia DNA (PCR) NEGATIVE N.gonorrhoeae DNA Probe NEGATIVE Group A Strep Antibody (NEGATIVE) 03/16/19 03/16/19 03/16/19 Range/Units 01:50 01:46 01:45 WBC (4.0-10.5) K/mm3 RBC (4.1-5.4) M/mm3 Hgb (12.0-16.0) gm/dl Hct (35-47) % MCV (78-100) fl MCH (26-32) pg MCHC (32-36) g/dl RDW (11.5-14.0) % Plt Count (150-450) K/mm3 MPV (6-9.5) fl Gran % (36.0-66.0) % Eos # (Auto) (0-0.5) Absolute Lymphs (auto) (1.0-4.6) Absolute Monos (auto) (0.0-1.3) Lymphocytes % (24.0-44.0) % Monocytes % (0.0-12.0) % Eosinophils % (0.00-5.0) % Basophils % (0.0-0.4) % Absolute Granulocytes (1.4-6.9) Basophils # (0-0.4) pO2/FiO2 Ratio 21.0 % VBG pH 7.38 (7.32-7.42) VBG pCO2 at Pat Temp 40 L (42-55) mm/Hg VBG pO2 at Pat Temp 45 H (25-40) mm/Hg VBG HCO3 23.7 (22-28) meq/L VBG O2 Sat (Isreal) 82.0 L (95-100) VBG Base Excess -1.3 (-2.0-2.0) VBG Hemoglobin 14.0 VBG Carboxyhemoglobin 3.0 (0.0-6.9) % T HGB POC Potassium 4.5 (3.5-5.1) Sodium (137-145) mmol/L Potassium (3.5-5.1) mmol/L Chloride (98-107) mmol/L Carbon Dioxide (22-30) mmol/L Anion Gap (5-15) MEQ/L BUN (7-17) mg/dL Creatinine (0.52-1.04) mg/dL Estimated GFR ML/MIN Glucose (74-106) mg/dL Lactic Acid 3.5 H (0.4-2.0) Calcium (8.4-10.2) mg/dL Magnesium (1.6-2.3) mg/dL Total Bilirubin (0.2-1.3) mg/dL AST (14-36) U/L ALT (0-35) U/L Alkaline Phosphatase (38-126) U/L Serum Total Protein (6.3-8.2) g/dL Albumin (3.5-5.0) g/dL Urine Color COLORLESS (YELLOW) Urine Appearance CLEAR (CLEAR) Urine pH 6.0 (5-6) Ur Specific [place] 1.027 (1.005-1.025) Urine Protein NEGATIVE (Negative) Urine Ketones TRACE (NEGATIVE) Urine Blood SMALL (0-5) Roberto/ul Urine Nitrite NEGATIVE (NEGATIVE) Urine Bilirubin NEGATIVE (NEGATIVE) Urine Urobilinogen NEGATIVE (0-1) mg/dL Ur Leukocyte Esterase SMALL (NEGATIVE) Urine WBC (Auto) 3-5 (0-5) /HPF Urine RBC (Auto) 0-2 (0-2) /HPF U Epithel Cells (Auto) NONE (FEW) /HPF Urine Bacteria (Auto) NONE (NEGATIVE) /HPF Urine Mucus (Auto) SLIGHT (NEGATIVE) /HPF Urine Culture Reflexed YES (NO) Urine Glucose >=500 (NEGATIVE) mg/dL Urine HCG, Qual (Negative) WBC (Wet Prep) RBC (Wet Prep) Epi Cells (Wet Prep) Bacteria (Wet Prep) Clue Cells (Wet Prep) Trichomonas (Wet Prep) Budding Yeast (Wet Prp) Chlamydia DNA (PCR) N.gonorrhoeae DNA Probe Group A Strep Antibody NEGATIVE (NEGATIVE) 03/16/19 03/16/19 03/16/19 Range/Units 01:45 01:45 01:45 WBC 8.6 (4.0-10.5) K/mm3 RBC 4.61 (4.1-5.4) M/mm3 Hgb 14.0 (12.0-16.0) gm/dl Hct 39.7 (35-47) % MCV 86.1 (78-100) fl MCH 30.4 (26-32) pg MCHC 35.3 (32-36) g/dl RDW 13.3 (11.5-14.0) % Plt Count 161 (150-450) K/mm3 MPV 11.2 H (6-9.5) fl Gran % 49.3 (36.0-66.0) % Eos # (Auto) 0.07 (0-0.5) Absolute Lymphs (auto) 3.86 (1.0-4.6) Absolute Monos (auto) 0.41 (0.0-1.3) Lymphocytes % 44.7 H (24.0-44.0) % Monocytes % 4.7 (0.0-12.0) % Eosinophils % 0.8 (0.00-5.0) % Basophils % 0.5 (0.0-0.4) % Absolute Granulocytes 4.26 (1.4-6.9) Basophils # 0.04 (0-0.4) pO2/FiO2 Ratio % VBG pH (7.32-7.42) VBG pCO2 at Pat Temp (42-55) mm/Hg VBG pO2 at Pat Temp (25-40) mm/Hg VBG HCO3 (22-28) meq/L VBG O2 Sat (Isreal) (95-100) VBG Base Excess (-2.0-2.0) VBG Hemoglobin VBG Carboxyhemoglobin (0.0-6.9) % T HGB POC Potassium (3.5-5.1) Sodium 137 (137-145) mmol/L Potassium 4.7 (3.5-5.1) mmol/L Chloride 100 (98-107) mmol/L Carbon Dioxide 22 (22-30) mmol/L Anion Gap 20.1 H (5-15) MEQ/L BUN 19 H (7-17) mg/dL Creatinine 0.45 L (0.52-1.04) mg/dL Estimated GFR > 60.0 ML/MIN Glucose 431 H (74-106) mg/dL Lactic Acid (0.4-2.0) Calcium 9.5 (8.4-10.2) mg/dL Magnesium 1.7 (1.6-2.3) mg/dL Total Bilirubin 0.60 (0.2-1.3) mg/dL AST 43 H (14-36) U/L ALT 45 H (0-35) U/L Alkaline Phosphatase 128 H (38-126) U/L Serum Total Protein 8.7 H (6.3-8.2) g/dL Albumin 4.6 (3.5-5.0) g/dL Urine Color (YELLOW) Urine Appearance (CLEAR) Urine pH (5-6) Ur Specific [place] (1.005-1.025) Urine Protein (Negative) Urine Ketones (NEGATIVE) Urine Blood (0-5) Roberto/ul Urine Nitrite (NEGATIVE) Urine Bilirubin (NEGATIVE) Urine Urobilinogen (0-1) mg/dL Ur Leukocyte Esterase (NEGATIVE) Urine WBC (Auto) (0-5) /HPF Urine RBC (Auto) (0-2) /HPF U Epithel Cells (Auto) (FEW) /HPF Urine Bacteria (Auto) (NEGATIVE) /HPF Urine Mucus (Auto) (NEGATIVE) /HPF Urine Culture Reflexed (NO) Urine Glucose (NEGATIVE) mg/dL Urine HCG, Qual NEGATIVE (Negative) WBC (Wet Prep) RBC (Wet Prep) Epi Cells (Wet Prep) Bacteria (Wet Prep) Clue Cells (Wet Prep) Trichomonas (Wet Prep) Budding Yeast (Wet Prp) Chlamydia DNA (PCR) N.gonorrhoeae DNA Probe Group A Strep Antibody (NEGATIVE) - Progress Progress: improved Air Movement: good Progress Note: 03/16/19 03:20 Headache resolved after IV medication and hydration 03/16/19 04:10 Patient is feeling much better, insulin drip is turned off with glucose significantly improved 03/16/19 05:00 Pain returned, 1 gram of Tylenol ordered 03/16/19 06:50 Labs corrected after 3 liters of fluid and Insulin drip for one hour. Tachycardia resolved as pulse is down to 97. 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 Blood Culture(s) Obtained: No Antibiotics given: No Counseled pt/family regarding: lab results, diagnosis, need for follow-up - Departure Departure Disposition: Home Clinical Impression: Bacterial vaginosis, Hyperglycemia due to type 1 diabetes mellitus, Lactic acidosis due to diabetes mellitus, Tachycardia Headache Qualifiers: Headache type: other headache syndrome Qualified Code(s): G44.89 - Other headache syndrome Condition: Good Critical Care Time: No Referrals: CONRAD ISBELL MD [Primary Care Provider] - 03/18/19 Instructions: Headache, Adult (DC), Bacterial Vaginosis (DC), Hyperglycemia, Adult (DC), Metabolic Acidosis Additional Instructions: Try to go back on your medication regimen for your diabetes including your insulin. Return immediately back to the emergency department if you have any new symptoms or any other concerning signs that were not present the emergency department for immediate reevaluation in the emergency department. Prescriptions: Metronidazole 500 mg [Flagyl 500 MG] 500 mg PO BID PRN #14 tablet
[2019-03-16] MEDS ORDERED: NovoLIN R ONE ×2 (01:47→02:20)
[2019-03-16 01:48] LABS: Lactic Acid 3.5 (0.4-2.0); VBG BASE EXCESS -1.3 (-2.0-2.0); VBG HCO3- 23.7 meq/L (22-28); VBG PCO2 40 mm/Hg (42-55); VBG PO2 45 mm/Hg (25-40); VBG POTASSIUM 4.5 (3.5-5.1); VBG pH 7.38 (7.32-7.42)
[2019-03-16] MEDS ORDERED: Sodium Chloride 0.9% 1000 ML 1,000 ML ONE ×3 (01:48→04:08)
[2019-03-16 01:49] LABS: Absolute Neutrophil Ct (ANC) 4.26 (1.4-6.9); BASOPHIL % 0.5 % (0.0-0.4); Basophil (Absolute #) 0.04 (0-0.4); Eosinophil % 0.8 % (0.00-5.0); Eosinophil (Absolute #) 0.07 (0-0.5); Hematocrit 39.7 % (35-47); Lymphocyte (Absolute #) 3.86 (1.0-4.6); Lymphocytes % 44.7 % (24.0-44.0); Mean Cell Volume 86.1 fl (78-100); Mean Corpuscular Hemoglobin 30.4 pg (26-32); Mean Corpuscular Hgb Concent. 35.3 g/dl (32-36); Mean Platelet Volume 11.2 fl (6-9.5); Monocyte (Absolute #) 0.41 (0.0-1.3); Monocytes % 4.7 % (0.0-12.0); Neutrophil % 49.3 % (36.0-66.0); Platelet Count 161 K/mm3 (150-450); Red Blood Count 4.61 M/mm3 (4.1-5.4); Red Cell Distribution Width 13.3 % (11.5-14.0); White Blood Count 8.6 K/mm3 (4.0-10.5)
[2019-03-16] MEDS ORDERED: TORAdol 30 mg Injection ONE (02:00)
[2019-03-16] MEDS ORDERED: BENADRYL 50 MG/ML ONE (02:00)
[2019-03-16 02:01] LABS: ALBUMIN 4.6 g/dL (3.5-5.0); ALKALINE PHOSPHATASE 128 U/L (38-126); ANION GAP 20.1 MEQ/L (5-15); BLOOD UREA NITROGEN 19 mg/dL (7-17); CHLORIDE 100 mmol/L (98-107); Calcium 9.5 mg/dL (8.4-10.2); Carbon Dioxide 22 mmol/L (22-30); Creatinine 1 0.45 mg/dL (0.52-1.04); Glucose 431 mg/dL (74-106); MAGNESIUM 1.7 mg/dL (1.6-2.3); Potassium 4.7 mmol/L (3.5-5.1); SGOT/AST 43 U/L (14-36); SGPT/ALT 45 U/L (0-35); SODIUM 137 mmol/L (137-145); Total Protein 8.7 g/dL (6.3-8.2)
[2019-03-16 02:03] LABS: Appearance CLEAR (CLEAR); Bilirubin NEGATIVE (NEGATIVE); Blood SMALL Ery/ul (0-5); Glucose >=500 mg/dL (NEGATIVE); Ketones TRACE (NEGATIVE); Leukocyte Esterase SMALL (NEGATIVE); Mucus SLIGHT /HPF (NEGATIVE); Nitrite NEGATIVE (NEGATIVE); Protein,Urine Dip NEGATIVE (Negative); RBC 0-2 /HPF (0-2); Specific Gravity 1.027 (1.005-1.025); Urobilinogen NEGATIVE mg/dL (0-1)
[2019-03-16] MEDS: Sodium Chloride 0.9% 1000 ML 1,000 ML IV STA ×3 (02:03→04:24)
[2019-03-16] MEDS: NovoLIN R IV ONE (02:04)
[2019-03-16] MEDS ORDERED: Hydromorphone 1 mg/ml Ampule ONE (02:04)
[2019-03-16] MEDS: BENADRYL 50 MG/ML IV ONE (02:05)
[2019-03-16] MEDS: Hydromorphone 1 mg/ml Ampule IV ONE (02:06)
[2019-03-16] MEDS: TORAdol 30 mg Injection IV ONE (02:06)
[2019-03-16] MEDS ORDERED: Sodium Chloride 0.9% 100 ML IVPB 100 ML IV ONE (02:19)
[2019-03-16 02:31] LABS: Bacteria Few; Clue Cells Moderate
[2019-03-16 02:32] LABS: Red Blood Cells Few; Trichomonas None Seen; White Blood Cells Few; Yeast None Seen
[2019-03-16] MEDS: NOVOLIN R INSULIN (FOR DRIPS)** 100 UNITS in Sodium Chloride 0.9% 100 ML IVPB 100 ML IV SCH (02:46)
[2019-03-16] MEDS ORDERED: Flagyl 500 MG ONE (03:29)
[2019-03-16] MEDS: Flagyl 500 MG PO ONE (03:30)
[2019-03-16 03:53] LABS: ANION GAP 18.7 MEQ/L (5-15); BLOOD UREA NITROGEN 16 mg/dL (7-17); CHLORIDE 107 mmol/L (98-107); Carbon Dioxide 21 mmol/L (22-30); Glucose 170 mg/dL (74-106); Potassium 3.4 mmol/L (3.5-5.1); SODIUM 143 mmol/L (137-145)
[2019-03-16 03:54] LABS: CHLAMYDIA DNA NEGATIVE; N GONORRHOEAE DNA NEGATIVE
[2019-03-16 04:02] LABS: Lactic Acid 3.6 (0.4-2.0)
[2019-03-16] MEDS ORDERED: TYLENOL EXTRA STRENGTH 500 MG ONE (05:01)
[2019-03-16] MEDS ORDERED: Dextrose 5% -0.45 NaCl 1000 ML 1,000 ML IV ONE (05:44)
[2019-03-16] MEDS: Dextrose 5% -0.45 NaCl 1000 ML 1,000 ML IV SCH (05:57)
[2019-03-16] MEDS: TYLENOL EXTRA STRENGTH 500 MG PO STA (05:58)
[2019-03-16] MEDS ORDERED: Klor Con 10 MEQ PO ONE (05:58)
[2019-03-16] MEDS: Klor Con 10 MEQ PO ONE (06:00)
[2019-03-16 06:21] VITALS: O2SAT 97
[2019-03-16 06:26] LABS: ANION GAP 13.8 MEQ/L (5-15); BLOOD UREA NITROGEN 16 mg/dL (7-17); CHLORIDE 108 mmol/L (98-107); Calcium 8.3 mg/dL (8.4-10.2); Carbon Dioxide 22 mmol/L (22-30); Creatinine 1 0.38 mg/dL (0.52-1.04); SODIUM 140 mmol/L (137-145)
[2019-03-16 06:31] LABS: Glucose 203 mg/dL (74-106)
[2019-03-16 07:20] VITALS: BP 101/65; PULSE 72
== END 2019-03-16 07:21 | disposition home or self-care (01) ==
LOC: ED 01:03
DX: N76.0 Acute vaginitis (principal); E10.65 Type 1 diabetes mellitus with hyperglycemia; E87.2 Acidosis; R00.0 Tachycardia, unspecified; G44.89 Other headache syndrome
CPT/HCPCS: 36000; 36415; 80048; 80053; 81001; 82805; 82962; 83605; 83735; 84703; 85025; 87086; 87210; 87490; 87590; 87651; 93005; 93041; 96360; 96361; 96365; 96367; 96374; 96375; 99285; J1170; J1200; J1815; J1885; A9270-GY

== ENCOUNTER 2019-03-20 14:01 | Emergency (ER) | payer MEDICAID ==
[2019-03-20] MEDS ORDERED: NovoLIN R IV ONE (14:32)
[2019-03-20] MEDS ORDERED: Sodium Chloride 0.9% 1000 ML 1,000 ML IV STA ×3 (14:32→14:57)
[2019-03-20] MEDS ORDERED: Sodium Chloride 0.9% 1000 ML 2,000 ML ONE (14:41)
[2019-03-20] MEDS ORDERED: NovoLIN R ONE (14:41)
--- NOTE | 2019-03-20 14:52 | ERPHSYRPT ---
- History of Present Illness Time Seen by Provider: 03/20/19 14:25 Historian: patient Exam Limitations: no limitations Physician History: Pain in the perineal area. Diagnosed 4 days ago with bacterial vaginosis from lab and pelvic examination, now feels rash is spilling out to the area between her vagina and anus. Patient had a blood sugar over 500 prior to coming into the emergency department Timing/Duration: day(s) (4), gradual onset Activities at Onset: none Quality: aching, stabbing Abdominal Pain Onset Location: RUQ, LUQ, epigastric, other (perineum) Pain Radiation: no radiation Severity of Pain-Max: moderate Severity of Pain-Current: moderate Modifying Factors: Improves With: nothing Associated Symptoms: diarrhea, No chest pain, No diaphoresis, No fever/chills, No fatigue, No heartburn, No neck pain, No rash, No shortness of breath, No syncope, No weakness Previous symptoms: no prior history, recently seen (in the emergency department at [facility] on 03/16/2019), recently treated (hyperglycemia and bacterial vaginosis 4 days ago) Allergies/Adverse Reactions: No Known Drug Allergies Allergy (Verified 11/24/18 17:27) Home Medications: Metformin HCl [Glucophage] 1,000 mg PO DAILY 10/07/18 [History] Hx Tetanus, Diphtheria Vaccination/Date Given: Yes Hx Influenza Vaccination/Date Given: No Hx Pneumococcal Vaccination/Date Given: No - Review of Systems Constitutional: No Fever, No Chills Eyes: No Eye Pain, No Vision Changes Ears, Nose, & Throat: No Mouth Swelling, No Painful Swallowing Respiratory: No Cough, No Dyspnea Cardiac: No Chest Pain, No Palpitations Abdominal/Gastrointestinal: Abdominal Pain, No Nausea, No Vomiting, No Hematemesis, No Hematochezia, No Melena Genitourinary Symptoms: No Dysuria, No Frequency, No Hematuria, No Flank Pain Musculoskeletal: No Back Pain, No Neck Pain Skin: No Pruritis Neurological: No Focal Weakness, No Headache, No Paralysis, No Parasthesia Psychological: No Anxiety Endocrine: No Excessive Sweating Hematologic/Lymphatic: No Easy Bleeding, No Easy Bruising All Other Systems: Reviewed and Negative - Past Medical History Pertinent Past Medical History: Yes Neurological History: No Pertinent History ENT History: No Pertinent History Cardiac History: No Pertinent History Respiratory History: No Pertinent History Endocrine Medical History: Diabetes Type II, Other Musculoskeletal History: No Pertinent History GI Medical History: No Pertinent History History: No Pertinent History Psycho-Social History: Depression Female Reproductive Disorders: Other Other Medical History: NON COMPLIANT ON INSULIN - Past Surgical History Past Surgical History: Yes Neuro Surgical History: No Pertinent History Cardiac: No Pertinent History Respiratory: No Pertinent History Gastrointestinal: No Pertinent History Genitourinary: No Pertinent History Musculoskeletal: No Pertinent History Female Surgical History: Other Other Surgical History: cyst on left ovary removed. wisdom teeth X 4 - Social History Smoking Status: Never smoker Exposure to second hand smoke: Yes Drug Use: none Patient Lives Alone: No - Female History Hx Now: No - Nursing Vital Signs Nursing Vital Signs: Initial Vital Signs Temperature 97.6 F 03/20/19 14:25 Pulse Rate 109 H 03/20/19 14:25 Blood Pressure 134/103 03/20/19 14:25 O2 Sat by Pulse Oximetry 96 03/20/19 14:25 Pain Scale Pain Intensity 7 - Physical Exam General Appearance: no apparent distress, alert Eye Exam: eyes nml inspection, No scleral icterus, No pale conjunctivae Ears, Nose, Throat Exam: pharynx normal, moist mucous membranes Neck Exam: normal inspection, non-tender, supple, full range of motion, No meningismus, No lymphadenopathy Respiratory Exam: normal breath sounds, lungs clear, airway intact, No chest tenderness, No respiratory distress, No accessory muscle use, No crackles/rales , No rhonchi, No wheezing, No stridor, No pleural rub Cardiovascular Exam: regular rate/rhythm, normal heart sounds, normal peripheral pulses, capillary refill <2 sec Gastrointestinal/Abdomen Exam: soft, normal bowel sounds, tenderness (upper abdomen), No distention, No mass, No guarding Pelvic Exam: other (only external examination performed. Mild erythem and tenderness to external vulva and perineum to palpation. Chaperoned by Daisy Cano RN) Back Exam: normal inspection, normal range of motion, No CVA tenderness, No vertebral tenderness, No rash Extremity Exam: normal inspection, normal range of motion, pelvis stable, No calf tenderness, No martin's sign, No pedal edema, No swelling Neurologic Exam: alert, normal mood/affect, sensation nml, No motor deficits Skin Exam: normal color, warm, dry, rash (perineum has mild erythema), No jaundice, No cyanosis SpO2 Interpretation: normal O2 Delivery: Room Air - Course Nursing assessment & vital signs reviewed: Yes EKG Interpreted by Me: RATE (98), Sinus Rhythm, NORMAL AXIS, NORMAL INTERVALS, NORMAL QRS, NORMAL ST-T, Other (no change in comparison to the EKG from 2018) - Radiology Exams Chest X-ray Interpretation: Reviewed by me, No Fracture, No Pneumonia, No Pneumothorax , No Infiltrates, Nml Mediastinum, Other (incidental RUL granuloma; confirmed by Radiologist) - CT Exams Abdomen/Pelvis CT Interpretation: Other (pper radiologist's interpretation: Lung bases remain clear. Heart is large. Noncontrast stomach and bowel loops remain nonobstructed. Normal appendix. Increasing mild/moderate degree scattered colonic fecal debris throughout. Stable left adnexa surgical clips. No free fluid/air. Spleen remains enlarged admitting 15.3 cm in greatest axial dimension. Remaining liver, gallbladder, pancreas, spleen, adrenal glands, kidneys, ureters, bladder, uterus, and aorta appear unremarkable. No pathologic retroperitoneal lymphadenopathy. Osseous structures intact. Impression: Mild worsening diffuse fecal stasis. Incidental splenomegaly. Remaining CT of the abdomen and pelvis with contrast exam is again negative.) Ordered Tests: Active Orders 24 hr Category Date Time Status Accucheck STAT Care 03/20/19 14:32 Active Technical Expert STAT Care 03/20/19 14:33 Active EKG-ER Only STAT Care 03/20/19 14:32 Active IV Insertion STAT Care 03/20/19 14:32 Active Pulse Oximetry (ED) STAT Care 03/20/19 14:32 Active ABDOMEN AND PELVIS W CONTRAST [CT] Stat Exams 03/20/19 14:40 Completed CHEST 1 VIEW (PORTABLE) Stat Exams 03/20/19 14:32 Completed BMP Stat Lab 03/20/19 16:47 Completed CBC W DIFF Stat Lab 03/20/19 14:50 Completed CK-Creatinine Phosphokinase Stat Lab 03/20/19 14:50 Completed CMP Stat Lab 03/20/19 14:50 Completed CULTURE,URINE Stat Lab 03/20/19 15:35 Received Lactic Acid Stat Lab 03/20/19 16:45 Completed Lactic Acid Urgent Lab 03/20/19 14:50 Completed MAGNESIUM Stat Lab 03/20/19 14:50 Completed TROPONIN Q3H Lab 03/20/19 14:50 Completed TROPONIN Q3H Lab 03/21/19 02:45 Ordered UA W/RFX UR CULTURE Stat Lab 03/20/19 15:35 Completed VENOUS BLOOD GAS Urgent Lab 03/20/19 14:50 Completed Medication Summary Discontinued Medications Generic Name Dose Route Start Last Admin Trade Name Raz PRN Reason Stop Dose Admin Sodium Chloride 1,000 mls @ 999 mls/hr 03/20/19 14:32 03/20/19 16:00 Sodium Chloride 0.9% 1000 Ml IV 03/20/19 15:32 Infused .Q1H1M STA Infusion Sodium Chloride 1,000 mls @ 999 mls/hr 03/20/19 14:35 03/20/19 16:00 Sodium Chloride 0.9% 1000 Ml IV 03/20/19 15:35 Infused .Q1H1M STA Infusion Sodium Chloride Confirm 03/20/19 14:41 Sodium Chloride 0.9% 1000 Ml Administered 03/20/19 14:42 Dose 2,000 mls @ ud .ROUTE .STK-MED ONE Sodium Chloride 1,000 mls @ 999 mls/hr 03/20/19 14:57 03/20/19 17:11 Sodium Chloride 0.9% 1000 Ml IV 03/20/19 15:57 Infused .Q1H1M STA Infusion Magnesium Sulfate/Dextrose 100 mls @ 200 mls/hr 03/20/19 15:34 03/20/19 15:44 Magnesium 1 Gm / 100 Ml D5w IV 03/20/19 16:03 200 mls/hr STAT ONE Administration Magnesium Sulfate/Dextrose Confirm 03/20/19 15:42 Magnesium 1 Gm / 100 Ml D5w Administered 03/20/19 15:43 Dose 100 mls @ ud IV .STK-MED ONE Insulin Human Regular 8 unit 03/20/19 14:32 03/20/19 14:55 Novolin R IV 03/20/19 14:33 8 unit STAT ONE Administration Insulin Human Regular Confirm 03/20/19 14:41 Novolin R Administered 03/20/19 14:42 Dose 8 unit .ROUTE .STK-MED ONE Morphine Sulfate 4 mg 03/20/19 17:15 03/20/19 17:18 Morphine Sulfate 4 Mg Inj IV 03/20/19 17:16 4 mg STAT ONE Administration Morphine Sulfate Confirm 03/20/19 17:17 Morphine Sulfate 4 Mg Inj Administered 03/20/19 17:18 Dose 4 mg .ROUTE .STK-MED ONE Lab/Rad Data: Laboratory Result Diagrams 03/20/19 14:50 03/20/19 16:47 Laboratory Results 03/20/19 03/20/19 03/20/19 Range/Units 16:47 16:45 15:35 WBC (4.0-10.5) K/mm3 RBC (4.1-5.4) M/mm3 Hgb (12.0-16.0) gm/dl Hct (35-47) % MCV (78-100) fl MCH (26-32) pg MCHC (32-36) g/dl RDW (11.5-14.0) % Plt Count (150-450) K/mm3 MPV (6-9.5) fl Gran % (36.0-66.0) % Eos # (Auto) (0-0.5) Absolute Lymphs (auto) (1.0-4.6) Absolute Monos (auto) (0.0-1.3) Lymphocytes % (24.0-44.0) % Monocytes % (0.0-12.0) % Eosinophils % (0.00-5.0) % Basophils % (0.0-0.4) % Absolute Granulocytes (1.4-6.9) Basophils # (0-0.4) pO2/FiO2 Ratio % VBG pH (7.32-7.42) VBG pCO2 at Pat Temp (42-55) mm/Hg VBG pO2 at Pat Temp (25-40) mm/Hg VBG HCO3 (22-28) meq/L VBG O2 Sat (Isreal) (95-100) VBG Base Excess (-2.0-2.0) VBG Hemoglobin VBG Carboxyhemoglobin (0.0-6.9) % T HGB POC Potassium (3.5-5.1) Sodium 140 (137-145) mmol/L Potassium 3.8 (3.5-5.1) mmol/L Chloride 105 (98-107) mmol/L Carbon Dioxide 24 (22-30) mmol/L Anion Gap 14.7 (5-15) MEQ/L BUN 7 (7-17) mg/dL Creatinine 0.29 L (0.52-1.04) mg/dL Estimated GFR > 60.0 ML/MIN Glucose 298 H (74-106) mg/dL Lactic Acid 1.8 (0.4-2.0) Calcium 8.6 (8.4-10.2) mg/dL Magnesium (1.6-2.3) mg/dL Total Bilirubin (0.2-1.3) mg/dL AST (14-36) U/L ALT (0-35) U/L Alkaline Phosphatase (38-126) U/L Creatine Kinase (30-135) U/L Troponin I (0.000-0.034) ng/mL Serum Total Protein (6.3-8.2) g/dL Albumin (3.5-5.0) g/dL Urine Color STRAW (YELLOW) Urine Appearance CLEAR (CLEAR) Urine pH 6.0 (5-6) Ur Specific [place] 1.028 (1.005-1.025) Urine Protein NEGATIVE (Negative) Urine Ketones SMALL (NEGATIVE) Urine Blood NEGATIVE (0-5) Roberto/ul Urine Nitrite NEGATIVE (NEGATIVE) Urine Bilirubin NEGATIVE (NEGATIVE) Urine Urobilinogen NEGATIVE (0-1) mg/dL Ur Leukocyte Esterase TRACE (NEGATIVE) Urine WBC (Auto) 11-15 (0-5) /HPF Urine RBC (Auto) 0-2 (0-2) /HPF U Epithel Cells (Auto) NONE (FEW) /HPF Urine Bacteria (Auto) RARE (NEGATIVE) /HPF Urine Mucus (Auto) SLIGHT (NEGATIVE) /HPF Urine Culture Reflexed YES (NO) Urine Glucose >=500 (NEGATIVE) mg/dL 03/20/19 03/20/19 03/20/19 Range/Units 14:50 14:50 14:50 WBC (4.0-10.5) K/mm3 RBC (4.1-5.4) M/mm3 Hgb (12.0-16.0) gm/dl Hct (35-47) % MCV (78-100) fl MCH (26-32) pg MCHC (32-36) g/dl RDW (11.5-14.0) % Plt Count (150-450) K/mm3 MPV (6-9.5) fl Gran % (36.0-66.0) % Eos # (Auto) (0-0.5) Absolute Lymphs (auto) (1.0-4.6) Absolute Monos (auto) (0.0-1.3) Lymphocytes % (24.0-44.0) % Monocytes % (0.0-12.0) % Eosinophils % (0.00-5.0) % Basophils % (0.0-0.4) % Absolute Granulocytes (1.4-6.9) Basophils # (0-0.4) pO2/FiO2 Ratio 21.0 % VBG pH 7.36 (7.32-7.42) VBG pCO2 at Pat Temp 45 (42-55) mm/Hg VBG pO2 at Pat Temp 32 (25-40) mm/Hg VBG HCO3 25.4 (22-28) meq/L VBG O2 Sat (Isreal) 64.3 L (95-100) VBG Base Excess -0.4 (-2.0-2.0) VBG Hemoglobin 13.4 VBG Carboxyhemoglobin 2.3 (0.0-6.9) % T HGB POC Potassium 3.8 (3.5-5.1) Sodium (137-145) mmol/L Potassium (3.5-5.1) mmol/L Chloride (98-107) mmol/L Carbon Dioxide (22-30) mmol/L Anion Gap (5-15) MEQ/L BUN (7-17) mg/dL Creatinine (0.52-1.04) mg/dL Estimated GFR ML/MIN Glucose (74-106) mg/dL Lactic Acid 2.8 H (0.4-2.0) Calcium (8.4-10.2) mg/dL Magnesium (1.6-2.3) mg/dL Total Bilirubin (0.2-1.3) mg/dL AST (14-36) U/L ALT (0-35) U/L Alkaline Phosphatase (38-126) U/L Creatine Kinase 80 (30-135) U/L Troponin I 0.015 (0.000-0.034) ng/mL Serum Total Protein (6.3-8.2) g/dL Albumin (3.5-5.0) g/dL Urine Color (YELLOW) Urine Appearance (CLEAR) Urine pH (5-6) Ur Specific [place] (1.005-1.025) Urine Protein (Negative) Urine Ketones (NEGATIVE) Urine Blood (0-5) Roberto/ul Urine Nitrite (NEGATIVE) Urine Bilirubin (NEGATIVE) Urine Urobilinogen (0-1) mg/dL Ur Leukocyte Esterase (NEGATIVE) Urine WBC (Auto) (0-5) /HPF Urine RBC (Auto) (0-2) /HPF U Epithel Cells (Auto) (FEW) /HPF Urine Bacteria (Auto) (NEGATIVE) /HPF Urine Mucus (Auto) (NEGATIVE) /HPF Urine Culture Reflexed (NO) Urine Glucose (NEGATIVE) mg/dL 03/20/19 03/20/19 Range/Units 14:50 14:50 WBC 6.5 (4.0-10.5) K/mm3 RBC 4.45 (4.1-5.4) M/mm3 Hgb 13.1 (12.0-16.0) gm/dl Hct 38.5 (35-47) % MCV 86.5 (78-100) fl MCH 29.4 (26-32) pg MCHC 34.0 (32-36) g/dl RDW 13.1 (11.5-14.0) % Plt Count 190 (150-450) K/mm3 MPV 10.0 H (6-9.5) fl Gran % 53.8 (36.0-66.0) % Eos # (Auto) 0.05 (0-0.5) Absolute Lymphs (auto) 2.51 (1.0-4.6) Absolute Monos (auto) 0.41 (0.0-1.3) Lymphocytes % 38.6 (24.0-44.0) % Monocytes % 6.3 (0.0-12.0) % Eosinophils % 0.8 (0.00-5.0) % Basophils % 0.5 (0.0-0.4) % Absolute Granulocytes 3.51 (1.4-6.9) Basophils # 0.03 (0-0.4) pO2/FiO2 Ratio % VBG pH (7.32-7.42) VBG pCO2 at Pat Temp (42-55) mm/Hg VBG pO2 at Pat Temp (25-40) mm/Hg VBG HCO3 (22-28) meq/L VBG O2 Sat (Isreal) (95-100) VBG Base Excess (-2.0-2.0) VBG Hemoglobin VBG Carboxyhemoglobin (0.0-6.9) % T HGB POC Potassium (3.5-5.1) Sodium 140 (137-145) mmol/L Potassium 4.0 (3.5-5.1) mmol/L Chloride 101 (98-107) mmol/L Carbon Dioxide 25 (22-30) mmol/L Anion Gap 17.7 H (5-15) MEQ/L BUN 8 (7-17) mg/dL Creatinine 0.38 L (0.52-1.04) mg/dL Estimated GFR > 60.0 ML/MIN Glucose 405 H (74-106) mg/dL Lactic Acid (0.4-2.0) Calcium 9.2 (8.4-10.2) mg/dL Magnesium 1.5 L (1.6-2.3) mg/dL Total Bilirubin 0.30 (0.2-1.3) mg/dL AST 43 H (14-36) U/L ALT 53 H (0-35) U/L Alkaline Phosphatase 142 H (38-126) U/L Creatine Kinase (30-135) U/L Troponin I (0.000-0.034) ng/mL Serum Total Protein 7.9 (6.3-8.2) g/dL Albumin 4.5 (3.5-5.0) g/dL Urine Color (YELLOW) Urine Appearance (CLEAR) Urine pH (5-6) Ur Specific [place] (1.005-1.025) Urine Protein (Negative) Urine Ketones (NEGATIVE) Urine Blood (0-5) Roberto/ul Urine Nitrite (NEGATIVE) Urine Bilirubin (NEGATIVE) Urine Urobilinogen (0-1) mg/dL Ur Leukocyte Esterase (NEGATIVE) Urine WBC (Auto) (0-5) /HPF Urine RBC (Auto) (0-2) /HPF U Epithel Cells (Auto) (FEW) /HPF Urine Bacteria (Auto) (NEGATIVE) /HPF Urine Mucus (Auto) (NEGATIVE) /HPF Urine Culture Reflexed (NO) Urine Glucose (NEGATIVE) mg/dL - Progress Progress: improved Discussed with : Claritza (@17:25, spoke with Dr Isbell, patient's physician. Dr Isbell recommended the patient starting Novolin N 20 units BID since it is very affordable and patient does not have insurance to get her started back on insulin since patient does not meet any criteria for inpatient admission. Patient may be discharged home and followup with him in the office on 2018. ) Counseled pt/family regarding: lab results - Departure Departure Disposition: Home Clinical Impression: Hypomagnesemia, Perineal rash in female, Upper abdominal pain of unknown etiology, Splenomegaly, Elevated blood pressure reading without diagnosis of hypertension, Perineal pain in female, Elevated lactic acid level Constipation Qualifiers: Constipation type: unspecified constipation type Qualified Code(s): K59.00 - Constipation, unspecified Hyperglycemia due to type 2 diabetes mellitus Qualifiers: Diabetes mellitus termite renewal inspector insulin use: unspecified termite renewal inspector insulin use status Qualified Code(s): E11.65 - Type 2 diabetes mellitus with hyperglycemia Condition: Good Critical Care Time: No Referrals: CONRAD ISBELL MD [Primary Care Provider] - 03/21/19 Instructions: DASH Diet, Constipation, Adult (DC), Acute Abdomen (Belly Pain), Adult (DC), Hyperglycemia, Adult (DC), Low Magnesium Level (DC), Fungal Skin Rash (DC) Additional Instructions: return immediately back to the emergency room if any new fevers, worsening abdominal pain, will localize abdominal pain, new back pain, new vomiting, new chest pain, any shortness of breath, any dizziness, worsening headache, or any other concerning signs or symptoms that were not present at today's emergency room visit for immediate reevaluation in the emergency department. Prescriptions: Insulin NPH Human Recom [Novolin N] 20 unit SQ BID #1 vial Nystatin Cream 30 gm [Nystop 30 gm Cream] 1 film TP BID #30 gm Polyethylene Glycol 3350 17 gm [Miralax Powder 17GM PACKET] 17 gm PO DAILY PRN #7 packet PRN Reason: Constipation
[2019-03-20 14:57] LABS: Absolute Neutrophil Ct (ANC) 3.51 (1.4-6.9); BASOPHIL % 0.5 % (0.0-0.4); Basophil (Absolute #) 0.03 (0-0.4); Eosinophil % 0.8 % (0.00-5.0); Eosinophil (Absolute #) 0.05 (0-0.5); Hematocrit 38.5 % (35-47); Hemoglobin 13.1 gm/dl (12.0-16.0); Lactic Acid 2.8 (0.4-2.0); Lymphocyte (Absolute #) 2.51 (1.0-4.6); Lymphocytes % 38.6 % (24.0-44.0); Mean Cell Volume 86.5 fl (78-100); Mean Corpuscular Hemoglobin 29.4 pg (26-32); Monocyte (Absolute #) 0.41 (0.0-1.3); Monocytes % 6.3 % (0.0-12.0); Neutrophil % 53.8 % (36.0-66.0); Platelet Count 190 K/mm3 (150-450); Red Blood Count 4.45 M/mm3 (4.1-5.4); Red Cell Distribution Width 13.1 % (11.5-14.0); VBG BASE EXCESS -0.4 (-2.0-2.0); VBG CARBOXYHEMOGLOBIN 2.3 % T HGB (0.0-6.9); VBG HCO3- 25.4 meq/L (22-28); VBG HEMOGLOBIN 13.4; VBG O2 SATURATION 64.3 (95-100); VBG PCO2 45 mm/Hg (42-55); VBG PO2 32 mm/Hg (25-40); VBG POTASSIUM 3.8 (3.5-5.1); VBG pH 7.36 (7.32-7.42); White Blood Count 6.5 K/mm3 (4.0-10.5)
[2019-03-20 15:12] LABS: ALBUMIN 4.5 g/dL (3.5-5.0); ALKALINE PHOSPHATASE 142 U/L (38-126); ANION GAP 17.7 MEQ/L (5-15); BLOOD UREA NITROGEN 8 mg/dL (7-17); CHLORIDE 101 mmol/L (98-107); Calcium 9.2 mg/dL (8.4-10.2); Carbon Dioxide 25 mmol/L (22-30); Creatinine 1 0.38 mg/dL (0.52-1.04); Glucose 405 mg/dL (74-106); MAGNESIUM 1.5 mg/dL (1.6-2.3); SGOT/AST 43 U/L (14-36); SGPT/ALT 53 U/L (0-35); SODIUM 140 mmol/L (137-145); Total Protein 7.9 g/dL (6.3-8.2)
--- NOTE | 2019-03-20 15:21 | XRAY ---
Indication: Short of breath. High blood sugar. Comparison: None Portable chest demonstrates normal heart, lungs, and bony thorax with incidental right upper lung calcified granuloma.
[2019-03-20] MEDS ORDERED: Magnesium 1 Gm / 100 Ml D5W*** 100 ML IV ONE ×2 (15:34→15:42)
[2019-03-20 16:13] LABS: Appearance CLEAR (CLEAR); Bacteria RARE /HPF (NEGATIVE); Bilirubin NEGATIVE (NEGATIVE); Blood NEGATIVE Ery/ul (0-5); Glucose >=500 mg/dL (NEGATIVE); Ketones SMALL (NEGATIVE); Leukocyte Esterase TRACE (NEGATIVE); Mucus SLIGHT /HPF (NEGATIVE); Nitrite NEGATIVE (NEGATIVE); Protein,Urine Dip NEGATIVE (Negative); RBC 0-2 /HPF (0-2); Specific Gravity 1.028 (1.005-1.025); Urobilinogen NEGATIVE mg/dL (0-1)
--- NOTE | 2019-03-20 16:16 | XRAY ---
Indication: Abdomen/pelvic pain. Unintended weight gain. Multiple contiguous axial images obtained through the abdomen and pelvis using 80 cc Isovue-370 contrast only. Comparison: December 06, 2018. Lung bases remain clear. Heart is not enlarged. Noncontrasted stomach and bowel loops remain nonobstructed. Normal appendix. Increasing mild/moderate degree scattered colonic fecal debris throughout. Stable left adnexa surgical clips. No free fluid/air. Spleen remains enlarged today measuring 15.3 cm in greatest axial dimension. Remaining liver, gallbladder, pancreas, spleen, adrenal glands, kidneys, ureters, bladder, uterus, and aorta appear unremarkable. No pathologic retroperitoneal lymphadenopathy. Osseous structures intact. Impression: 1. Mild worsening diffuse fecal stasis. 2. Again incidental splenomegaly. 3. Remaining CT abdomen/pelvis with contrast exam is again negative. CTDI 20.34
[2019-03-20 17:00] LABS: ANION GAP 14.7 MEQ/L (5-15); BLOOD UREA NITROGEN 7 mg/dL (7-17); CHLORIDE 105 mmol/L (98-107); Calcium 8.6 mg/dL (8.4-10.2); Carbon Dioxide 24 mmol/L (22-30); Creatinine 1 0.29 mg/dL (0.52-1.04); Glucose 298 mg/dL (74-106); Potassium 3.8 mmol/L (3.5-5.1); SODIUM 140 mmol/L (137-145)
[2019-03-20] MEDS ORDERED: MORPHINE SULFATE 4 MG INJ IV ONE (17:15)
[2019-03-20] MEDS ORDERED: MORPHINE SULFATE 4 MG INJ ONE (17:17)
[2019-03-20 17:21] VITALS: BP 139/102; PULSE 102; O2SAT 98
== END 2019-03-20 18:00 | disposition home or self-care (01) ==
LOC: ED 14:01
DX: K59.00 Constipation, unspecified (principal); E11.65 Type 2 diabetes mellitus with hyperglycemia; E83.42 Hypomagnesemia; R21 Rash and other nonspecific skin eruption; R10.10 Upper abdominal pain, unspecified; R16.1 Splenomegaly, not elsewhere classified; R03.0 Elevated blood-pressure reading, without diagnosis of hypertension; R10.2 Pelvic and perineal pain; R74.0 Nonspecific elevation of levels of transaminase and lactic acid dehydrogenase [LDH]; Z79.899 Other long term (current) drug therapy
CPT/HCPCS: 36415; 71045; 74177; 80048; 80053; 81001; 82550; 82805; 82962; 83605; 83735; 84484; 85025; 87086; 93005; 93041; 94760; 96360; 96361; 96365; 96374; 96375; 99285; J2270; J3475; A9270-GY

== ENCOUNTER 2019-06-24 21:04 | Emergency (ER) | payer OTHER ==
--- NOTE | 2019-06-24 21:06 | ERPHSYRPT ---
- History of Present Illness Time Seen by Provider: 06/24/19 21:06 Source: patient, family Exam Limitations: no limitations Physician History: This is a diabetic 24-year-old white female who presents with 3-month history of recurrent urinary tract infections. Patient complains of dysuria and itching vaginally. She denies vaginal discharge. Patient has been to several emergency rooms for similar symptoms. Has not seen a urologist for these symptoms. Patient denies abdominal pain. Patient does not have diarrhea Timing/Duration: other Activites at Onset: none Quality: burning Onset Location: urethral (pain, burning with urination) Pain Radiation: none Severity of Pain-Max: mild Severity of Pain-Current: mild Sexual intercourse history: non-contributory Associated Symptoms: dysuria Allergies/Adverse Reactions: No Known Drug Allergies Allergy (Verified 11/24/18 17:27) Home Medications: Metformin HCl [Glucophage] 1,000 mg PO BID 10/07/18 [History] Insulin Glargine,Hum.rec.anlog [Basaglar Kwikpen U-100] 34 units SQ DAILY [History] Hx Tetanus, Diphtheria Vaccination/Date Given: Yes Hx Influenza Vaccination/Date Given: No Hx Pneumococcal Vaccination/Date Given: No - Review of Systems Constitutional: No Symptoms Eyes: No Symptoms Ears, Nose, & Throat: No Symptoms Respiratory: No Symptoms Cardiac: No Symptoms Abdominal/Gastrointestinal: No Symptoms Genitourinary Symptoms: Dysuria, Vaginal Itching Musculoskeletal: No Symptoms Skin: No Symptoms Neurological: No Symptoms Psychological: No Symptoms Endocrine: No Symptoms Hematologic/Lymphatic: No Symptoms Immunological/Allergic: No Symptoms All Other Systems: Reviewed and Negative - Past Medical History Pertinent Past Medical History: Yes Neurological History: No Pertinent History ENT History: No Pertinent History Cardiac History: No Pertinent History Respiratory History: No Pertinent History Endocrine Medical History: Diabetes Type II, Other Musculoskeletal History: No Pertinent History GI Medical History: No Pertinent History History: No Pertinent History Psycho-Social History: Depression Female Reproductive Disorders: Other Other Medical History: NON COMPLIANT ON INSULIN - Past Surgical History Past Surgical History: Yes Neuro Surgical History: No Pertinent History Cardiac: No Pertinent History Respiratory: No Pertinent History Gastrointestinal: No Pertinent History Genitourinary: No Pertinent History Musculoskeletal: No Pertinent History Female Surgical History: Other Other Surgical History: cyst on left ovary removed. wisdom teeth X 4 - Social History Smoking Status: Never smoker Exposure to second hand smoke: Yes Drug Use: none Patient Lives Alone: No - Nursing Vital Signs Nursing Vital Signs: Initial Vital Signs Temperature 97.8 F 06/24/19 21:15 Pulse Rate 110 H 06/24/19 21:15 Respiratory Rate 17 06/24/19 21:15 Blood Pressure 124/85 06/24/19 21:15 O2 Sat by Pulse Oximetry 97 06/24/19 21:15 Pain Scale Pain Intensity 8 - Physical Exam General Appearance: no apparent distress, alert, anxiety Eye Exam: PERRL/EOMI, eyes nml inspection Ears, Nose, Throat Exam: normal ENT inspection, moist mucous membranes Neck Exam: normal inspection, non-tender, supple, full range of motion Respiratory Exam: normal breath sounds, lungs clear, airway intact, No chest tenderness, No respiratory distress Cardiovascular Exam: regular rate/rhythm, normal heart sounds, normal peripheral pulses Gastrointestinal/Abdomen Exam: soft, normal bowel sounds, No tenderness Pelvic Exam: not done Rectal Exam: not done Back Exam: normal inspection, normal range of motion, No CVA tenderness, No vertebral tenderness Extremity Exam: normal inspection, normal range of motion, pelvis stable Neurologic Exam: alert, oriented x 3, cooperative, commercial property manager II-XII nml as tested, normal mood/affect, nml cerebellar function, nml station & gait Skin Exam: normal color, warm, dry Lymphatic Exam: No adenopathy SpO2 Interpretation: normal O2 Delivery: Room Air - Course Nursing assessment & vital signs reviewed: Yes Ordered Tests: Active Orders 24 hr Category Date Time Status HCG,QUALITATIVE URINE Stat Lab 06/24/19 21:30 Completed UA W/RFX UR CULTURE Stat Lab 06/24/19 21:30 Completed Lab/Rad Data: Laboratory Results 06/24/19 06/24/19 Range/Units 21:30 21:30 Urine Color STRAW (YELLOW) Urine Appearance CLEAR (CLEAR) Urine pH 7.0 (5-6) Ur Specific Gay 1.031 (1.005-1.025) Urine Protein NEGATIVE (Negative) Urine Ketones TRACE (NEGATIVE) Urine Blood NEGATIVE (0-5) Roberto/ul Urine Nitrite NEGATIVE (NEGATIVE) Urine Bilirubin NEGATIVE (NEGATIVE) Urine Urobilinogen NEGATIVE (0-1) mg/dL Ur Leukocyte Esterase NEGATIVE (NEGATIVE) Urine WBC (Auto) 0-2 (0-5) /HPF Urine RBC (Auto) NONE (0-2) /HPF U Epithel Cells (Auto) RARE (FEW) /HPF Urine Mucus (Auto) SLIGHT (NEGATIVE) /HPF Urine Culture Reflexed NO (NO) Urine Glucose >=500 (NEGATIVE) mg/dL Urine HCG, Qual NEGATIVE (Negative) - Progress Progress: unchanged Air Movement: good Progress Note: 06/24/19 22:42 Medical decision making: This patient has poorly controlled diabetes. Recently , a week ago, she had a change in her insulin regimen. Patient was not watching her diet and her blood sugars were in the 600 range. She is now in the 300-350 range on her blood sugar. Patient has had bacterial vaginosis, yeast infection and urinary tract infections recurrently. There is no evidence of any urinary tract infection, yeast infection or bacterial vaginosis today. Therefore, together, we have opted not to treat her with any antibiotics or antifungal medication. We will treat her symptoms of dysuria with Pyridium. Blood Culture(s) Obtained: No Antibiotics given: No Counseled pt/family regarding: lab results, diagnosis, need for follow-up - Departure Departure Disposition: Home Clinical Impression: Dysuria, Glucosuria Condition: Stable Critical Care Time: No Referrals: CONRAD ISBELL MD [Primary Care Provider] - Additional Instructions: Drink plenty of fluids. Monitor your blood glucose closely. Manage your blood glucose more tightly. Follow-up with your primary care doctor to help manage your blood sugar. Follow-up with a urologist for further evaluation of your recurrent urinary tract infections, yeast infections and bacterial vaginosis. Prescriptions: Phenazopyridine HCl 200 mg [Pyridium 200 mg] 200 mg PO TID #6 tablet
[2019-06-24 22:07] LABS: Appearance CLEAR (CLEAR); Bilirubin NEGATIVE (NEGATIVE); Blood NEGATIVE Ery/ul (0-5); Epithelial Cells RARE /HPF (FEW); Glucose >=500 mg/dL (NEGATIVE); Ketones TRACE (NEGATIVE); Leukocyte Esterase NEGATIVE (NEGATIVE); Mucus SLIGHT /HPF (NEGATIVE); Nitrite NEGATIVE (NEGATIVE); Protein,Urine Dip NEGATIVE (Negative); Specific Gravity 1.031 (1.005-1.025); Urobilinogen NEGATIVE mg/dL (0-1); WBC 0-2 /HPF (0-5)
[2019-06-24] MEDS ORDERED: PYRIDIUM 200 MG ONE (23:00)
[2019-06-24 23:04] VITALS: BP 120/81; PULSE 105; O2SAT 98
[2019-06-24] MEDS ORDERED: TYLENOL 325 MG PO STA (23:05)
[2019-06-24] MEDS ORDERED: TYLENOL 325 MG ONE (23:28)
[2019-06-25] MEDS ORDERED: PYRIDIUM 200 MG PO ONE (22:46)
== END 2019-06-24 23:34 | disposition home or self-care (01) ==
LOC: ED 21:04
DX: R30.0 Dysuria (principal); R81 Glycosuria
CPT/HCPCS: 81001; 84703; 99283; A9270-GY